=== PATIENT | male | born 1965 | race Caucasian/White ===

== ENCOUNTER 2017-07-11 21:00 | Emergency (ER) | payer BC ==
[2017-07-11 21:08] VITALS: BP 134/88; PULSE 88; TEMP 97.8; BMI 31.0
--- NOTE | 2017-07-11 21:13 | PDOC ---
History of Present Illness - History of Present Illness Initial Comments: 07/11/17 21:45 The patient is a 52 year old male, with a significant past medical history of diverticulitis (09/02), lumbar herniated discs, who presents to the emergency department with LLQ pain this afternoon. Patient describes his pain as cramping , intermittent, does not radiate, worsens when bending at the hip. Patient states that he experienced the same pain around 2-3 weeks ago and states the pain lasted a couple of days. He denies any recent fevers, chills, headache or dizziness. He denies any recent nausea, vomit, diarrhea or constipation. He denies any recent chest pain or shortness of breath. He denies any recent dysuria, frequency, urgency or hematuria. PAST MEDICAL HISTORY: no significant history PAST SURGICAL HISTORY: no significant history FAMILY HISTORY: no pertinent history SOCIAL HISTORY: pack > 30 years. Social EtOH use. Denies recreational drug use. MEDICATIONS: reviewed ALLERGIES: Zosyn, bee stings. Primary Care Physician: Daren Mondragon Review of Symptoms General: No fevers or chills, no weakness, no weight loss HEENT: No change in vision. No sore throat, No ear pain Cardiovascular: No chest pain or shortness of breath Respiratory:No cough, or wheezing. Gastrointestinal: +LLQ pain.No nausea, vomiting, diarrhea or constipation, No rectal bleeding Genitourinary: No dysuria, hematuria, or frequency Musculoskeletal: No joint or muscle pain or swelling Neurologic: No headache, vertigo, dizziness or loss of consciousness Psychiatric: No depression Skin: No rashes or easy bruising Endocrine: No increased thirst or abnormal weight change Allergic: No skin or latex allergy All other systems reviewed and normal Physical Exam General: Well-nourished well-developed individual, no acute distress HEENT: Throat: Normal, tonsils normal, no erythema or exudate Neck: Supple, no meningeal signs, no lymphadenopathy Eyes::Pupils equal reactive and round, extraocular motion intact Chest: Nontender to palpation Cardiac: S1-S2 normal, regular rate and rhythm, no murmurs rubs or gallops Respiratory: Lungs clear to auscultation bilateral Abdomen: Soft, nondistended, normal bowel sounds, LLQ tenderness to palpation, no guarding, no rebound. Extremities: Warm, dry, no cyanosis, clubbing, or edema Skin: No rashes Neuro: Alert and oriented x3, nonfocal exam, grossly intact, normal gait Psych: Normal mood and affect <Rosemary Mahajan - Last Filed: 07/11/17 21:49> - General History Source: Patient Exam Limitations: No Limitations - History of Present Illness Initial Comments: A portion of this note was documented by scribe services under my direction. I have reviewed the details of the note, within reason, and agree with the documentation. The case summary and management plan written by me. Medical decision making: This is a 52-year-old male who has history of diverticulitis in the past 2. Patient comes in now complaining of one day of left lower quadrant pain. Patient denies any fevers or chills. Patient denies any urinary complaints. There is tenderness on palpation in the right lower quadrant but no guarding or rebound. There is no evidence on my exam at this time of peritonitis. Will initiate a workup to rule out diverticulitis. CBC, comp, urinalysis sent to the lab Will obtain a CAT scan of the abdomen and pelvis Will reassess and review results of workup 07/11/17 22:47 Reassessment: Patient feels better post pain medication and some IV fluids. Patient finished drinking his oral contrast and that scan will be done at 11:30 PM. 07/12/17 00:36 Reassessment patient says that he is feeling much better at this point. Patient's CAT scan was read as acute diverticulitis There is also mention made of a possible mass so patient was given a copy of the CAT scan and told that he needs to have it followed up after resolution of the diverticulitis. Patient given ceftriaxone and Flagyl IV Assessment and plan: This is a 52-year-old male comes in complaining of fever and pain. Patient had a workup that was positive for acute diverticulitis. Patient started on IV antibiotics in the emergency room ceftriaxone and Flagyl and prescriptions for Bactrim and Flagyl were said to his pharmacy. Patient was given a copy of his CAT scan and told that he needs to followed up with his primary care Dr. as her was a questionable mass on I discussed the physical exam findings, ancillary test results and final diagnoses with the patient. I answered all of the patient's questions. The patient was satisfied with the care received and felt comfortable with the discharge plan and treatment plan. The patient will call his primary care physician within 24 hours to arrange follow-up and will return to the Emergency Department with any new, persistent or worsening symptoms. <Cesar Dhillon I - Last Filed: 07/12/17 00:49> - General Chief Complaint: Pain Stated Complaint: LEFT GROIN PAIN Time Seen by Provider: 07/11/17 21:06 Past History <Rosemary Mahajan - Last Filed: 07/11/17 21:49> - Past Medical History Anemia: No Asthma: No Cancer: No Cardiac Disorders: No CVA: No COPD: No CHF: No DVT: No Dementia: No Diabetes: No Dialysis: No GI Disorders: No Disorders: No HTN: No Hypercholesterolemia: No Kidney Stones: No Liver Disease: No Psychiatric Problems: No Seizures: No Thyroid Disease: No Lung CA: No - Suicide/Smoking/Psychosocial Hx Smoking Status: Yes Smoking History: Unknown if ever smoked Have you smoked in the past 12 months: Yes Number of Cigarettes Smoked Daily: 20 Cigars Per Day: 20 'Breaking Loose' booklet given: 09/09/13 Hx Alcohol Use: No Drug/Substance Use Hx: No Substance Use Type: None <Cesar Dhillon I - Last Filed: 07/12/17 00:49> - Past Medical History Allergies/Adverse Reactions: Allergies Allergy/AdvReac Type Severity Reaction Status Date / Time piperacillin sodium Allergy Rash Verified 07/11/17 21:12 [From Zosyn] tazobactam sodium Allergy Rash Verified 07/11/17 21:12 [From Zosyn] Bee stings Allergy Uncoded 09/09/13 11:31 Home Medications: Ambulatory Orders Metronidazole [Flagyl -] 500 mg PO BID #20 tablet 07/12/17 Sulfamethoxazole/Trimethoprim [Bactrim Ds -] 1 tab PO BID #20 tablet 07/12/17 Review of Systems - Review of Systems Comments:: 07/11/17 21:45 see HPI <Rosemary Mahajan - Last Filed: 07/11/17 21:49> *Physical Exam - Vital Signs Last Vital Signs Temp Pulse Resp BP Pulse Ox 97.8 F 88 16 134/88 98 07/11/17 21:00 07/11/17 21:00 07/11/17 21:00 07/11/17 21:00 07/11/17 21:00 - Physical Exam Comments: 07/11/17 21:45 see HPI <Rosemary Mahajan - Last Filed: 07/11/17 21:49> - Vital Signs Last Vital Signs Temp Pulse Resp BP Pulse Ox 97.8 F 88 16 134/88 98 07/11/17 21:00 07/11/17 21:00 07/11/17 21:00 07/11/17 21:00 07/11/17 21:00 <Cesar Dhillon I - Last Filed: 07/12/17 00:49> ED Treatment Course - LABORATORY CBC & Chemistry Diagram: 07/11/17 21:45 07/11/17 21:45 <Cesar Dhillon I - Last Filed: 07/12/17 00:49> *DC/Admit/Observation/Transfer <Rosemary Mahajan - Last Filed: 07/11/17 21:49> - Discharge Dispostion Admit: No <Cesar Dhillon I - Last Filed: 07/12/17 00:49> Diagnosis at time of Disposition: Diverticulitis - Discharge Dispostion Disposition: HOME Condition at time of disposition: Stable - Prescriptions Prescriptions: Metronidazole [Flagyl -] 500 mg PO BID #20 tablet Sulfamethoxazole/Trimethoprim [Bactrim Ds -] 1 tab PO BID #20 tablet - Referrals Referrals: Daren Mondragon MD [Primary Care Provider] - - Patient Instructions Printed Discharge Instructions: DI for Diverticulitis Additional Instructions: Take bactrim 1 tablet twice a day for the next 10 days. Take Flagyl 1 tablet twice a day for the next 10 days. A diverticulitis diet is recommend as part of a short-term treatment plan for acute diverticulitis. Diverticula are small, bulging pouches that can form in the lining of the digestive system. They're found most often in the lower part of the large intestine (colon). This condition is called diverticulosis. In some cases, one or more of the pouches become inflamed or infected. This is known as diverticulitis. Mild cases of diverticulitis are usually treated with antibiotics and a diverticulitis diet, which includes clear liquids and low-fiber foods. More- severe cases typically require hospitalization. A diverticulitis diet is a temporary measure to give your digestive system a chance to rest. Oral intake is usually reduced until bleeding and diarrhea subside. A diverticulitis diet starts with only clear liquids for a few days. Examples of items allowed on a clear liquid diet include: Broth Fruit juices without pulp, such as apple juice Ice chips Ice pops without bits of fruit or fruit pulp Gelatin Water Tea or coffee without cream As you start feeling better, your doctor will recommend that you slowly add low- fiber foods. Examples of low-fiber foods include: Canned or cooked fruits without skin or seeds Canned or cooked vegetables such as green beans, carrots and potatoes (without the skin) Eggs, fish and poultry Refined white bread Fruit and vegetable juice with no pulp Low-fiber cereals Milk, yogurt and cheese eat yogurt at least once a day as it will help replenish the healthy bacteria in your intestines that the antibiotics kill. White rice, pasta and noodles You should feel better within two or three days of starting the diet and antibiotics. If you haven't started feeling better by then, call your doctor. Also contact your doctor if: You develop a fever Your abdominal pain is worsening You're unable to keep clear liquids down These may indicate a complication that requires hospitalization. The diverticulitis diet has few risks. However, continuing a clear liquid diet for more than a few days can lead to weakness and other complications, since it doesn't provide enough of the nutrients your body needs. For this reason, I recommend you to transition to the low fiberl diet as soon as you can tolerate it and then back to a normal diet once you finish the antibiotics. I give you a copy of your CAT scan it is important you take it to your doctor and have it followed up as there was a questionable finding of a mass on the CAT scan that needs to be followed up by your primary care doctor. Return to the emergency department immediately with ANY new, persistent or worsening symptoms. Continue any medications as previously prescribed by your physician. You should follow up with your primary doctor as soon as possible regarding today's emergency department visit. . Please make sure your doctor reviews the results of your emergency evaluation. Thank you for coming to the Emergency Department today for your care. It was a pleasure to see you today. Please note that your evaluation is INCOMPLETE until you follow-up with your doctor. - Post Discharge Activity
[2017-07-11] MEDS ORDERED: morphine CARPU-JECT 4 MG/1 ML DISP.SYRIN IVPUSH ONE (21:47)
[2017-07-11] MEDS ORDERED: SODIUM CHLORIDE 1,000 ML IV ONE (21:47)
[2017-07-11] MEDS ORDERED: ONDANSETRON 4 MG/2 ML VIAL IVPB ONE (21:49)
[2017-07-11] MEDS ORDERED: morphine SULFATE 4 MG/ML VIAL ONE (21:52)
[2017-07-11] MEDS ORDERED: ONDANSETRON 4 MG/2 ML VIAL ONE (21:52)
[2017-07-11 22:00] LABS: URINE APPEARANCE Clear; URINE BILIRUBIN Negative (NEGATIVE); URINE BLOOD Negative (NEGATIVE); URINE GLUCOSE (UA) Negative (NEGATIVE); URINE KETONE Trace (NEGATIVE); URINE NITRITE Negative (NEGATIVE); URINE PROTEIN Trace (NEGATIVE); URINE UROBILINOGEN 0.2 (0.2-1.0)
[2017-07-11 22:03] LABS: URINE COLOR YELLOW
[2017-07-11 22:07] LABS: BASO % 0.6 % (0-2.0); EOS % 0.9 % (0-4.5); HEMATOCRIT 42.9 % (35.4-49); HEMOGLOBIN 14.5 GM/dl (11.7-16.9); LYMPH % 15.6 % (8-40); MCH 29.4 pg (25.7-33.7); MCHC 33.8 g/dl (32.0-35.9); MEAN CELL VOLUME 87.1 fl (80-96); MEAN PLT VOLUME 9.3 fl (7.5-11.1); MONO % 7.6 % (3.8-10.2); NEUT % 75.3 % (42.8-82.8); PLATELET COUNT 224 K/MM3 (134-434); RBC 4.93 M/mm3 (4.00-5.60); RDW 13.1 % (11.9-15.9); WHITE BLOOD COUNT 15.1 K/mm3 (4.0-10.8)
[2017-07-11 22:15] LABS: ALBUMIN 4.2 g/dl (3.5-5.0); ALK PHOS 65 U/L (32-92); ANION GAP 8 (8-16); BILIRUBIN,TOTAL 1.1 mg/dl (0.2-1.0); BLOOD UREA NITROGEN 20 mg/dl (7-18); CALCIUM 9.4 mg/dl (8.4-10.2); CHLORIDE 102 mmol/L (98-107); CO2 26 mmol/L (22-28); CREATININE 1.1 mg/dl (0.6-1.3); GLUCOSE,RANDOM 89 mg/dl (74-106); LIPASE 21 U/L (22-51); POTASSIUM 4.2 mmol/L (3.5-5.1); SGOT/AST 22 U/L (10-42); SGPT/ALT 22 U/L (10-40); SODIUM 136 mmol/L (136-145); TOT PROT 6.9 g/dl (6.4-8.3)
[2017-07-12] MEDS ORDERED: CEFTRIAXONE 1,000 MG in DEXTROSE 5%-WATER - 50 ML IVPB ONE (00:37)
[2017-07-12] MEDS ORDERED: metroNIDAZOLE 500 MG TABLET PO ONE (00:38)
[2017-07-12] MEDS ORDERED: cefTRIAXone SODIUM 1 GM VIAL ONE (00:43)
--- NOTE | 2017-07-12 01:17 | PDOC ---
History of Present Illness - General Chief Complaint: Pain Stated Complaint: LEFT GROIN PAIN Time Seen by Provider: 07/11/17 21:06 Past History - Past Medical History Allergies/Adverse Reactions: Allergies Allergy/AdvReac Type Severity Reaction Status Date / Time piperacillin sodium Allergy Rash Verified 07/11/17 21:12 [From Zosyn] tazobactam sodium Allergy Rash Verified 07/11/17 21:12 [From Zosyn] Bee stings Allergy Uncoded 09/09/13 11:31 Home Medications: Ambulatory Orders Metronidazole [Flagyl -] 500 mg PO BID #20 tablet 07/12/17 Sulfamethoxazole/Trimethoprim [Bactrim Ds -] 1 tab PO BID #20 tablet 07/12/17 Anemia: No Asthma: No Cancer: No Cardiac Disorders: No CVA: No COPD: No CHF: No DVT: No Dementia: No Diabetes: No Dialysis: No GI Disorders: No Disorders: No HTN: No Hypercholesterolemia: No Kidney Stones: No Liver Disease: No Psychiatric Problems: No Seizures: No Thyroid Disease: No Lung CA: No - Suicide/Smoking/Psychosocial Hx Smoking Status: Yes Smoking History: Unknown if ever smoked Have you smoked in the past 12 months: Yes Number of Cigarettes Smoked Daily: 20 Cigars Per Day: 20 'Breaking Loose' booklet given: 09/09/13 Hx Alcohol Use: No Drug/Substance Use Hx: No Substance Use Type: None *Physical Exam - Vital Signs Last Vital Signs Temp Pulse Resp BP Pulse Ox 97.8 F 88 16 134/88 98 07/11/17 21:00 07/11/17 21:00 07/11/17 21:00 07/11/17 21:00 07/11/17 21:00 ED Treatment Course - LABORATORY CBC & Chemistry Diagram: 07/11/17 21:45 07/11/17 21:45 - ADDITIONAL ORDERS Additional order review: Laboratory Results 07/11/17 07/11/17 21:45 21:45 Sodium 136 Potassium 4.2 Chloride 102 Carbon Dioxide 26 Anion Gap 8 BUN 20 H Creatinine 1.1 D Creat Clearance w eGFR > 60 Random Glucose 89 Calcium 9.4 Total Bilirubin 1.1 H D AST 22 D ALT 22 Alkaline Phosphatase 65 Total Protein 6.9 Albumin 4.2 Lipase 21 L Urine Color Yellow Urine Appearance Clear Urine pH 6.0 Ur Specific [place] 1.025 Urine Protein Trace Urine Glucose (UA) Negative Urine Ketones Trace Urine Blood Negative Urine Nitrite Negative Urine Bilirubin Negative Urine Urobilinogen 0.2 07/11/17 21:45 RBC 4.93 MCV 87.1 MCHC 33.8 RDW 13.1 MPV 9.3 Neutrophils % 75.3 Lymphocytes % 15.6 D Monocytes % 7.6 Eosinophils % 0.9 Basophils % 0.6 - RADIOLOGY Radiology Studies Ordered: Category Date Time Status ABDOMEN & PELVIS CT WITH CONTR [CT] Stat CT Scan 07/11/17 21:50 Taken - Medications Given in the ED: ED Medications Discontinued Medications Generic Name Dose Route Start Last Admin Trade Name Freq PRN Reason Stop Dose Admin Sodium Chloride 1,000 mls @ 1,000 mls/hr 07/11/17 21:47 07/11/17 21:58 Normal Saline - IV 07/11/17 22:46 1,000 mls/hr .Q1H ONE Administration Metronidazole 500 mg 07/12/17 00:38 07/12/17 00:51 Flagyl - PO 07/12/17 00:39 Not Given ONCE ONE Morphine Sulfate 4 mg 07/11/17 21:47 07/11/17 21:58 Morphine Injection - IVPUSH 07/11/17 21:48 4 mg ONCE ONE Administration Ondansetron HCl 4 mg 07/11/17 21:49 07/11/17 21:58 Zofran Injection IVPB 07/11/17 21:50 4 mg ONCE ONE Administration *DC/Admit/Observation/Transfer Diagnosis at time of Disposition: Diverticulitis - Discharge Dispostion Disposition: HOME Condition at time of disposition: Stable - Prescriptions Prescriptions: Metronidazole [Flagyl -] 500 mg PO BID #20 tablet Sulfamethoxazole/Trimethoprim [Bactrim Ds -] 1 tab PO BID #20 tablet - Referrals Referrals: Daren Mondragon MD [Primary Care Provider] - - Patient Instructions Printed Discharge Instructions: DI for Diverticulitis Additional Instructions: Take bactrim 1 tablet twice a day for the next 10 days. Take Flagyl 1 tablet twice a day for the next 10 days. A diverticulitis diet is recommend as part of a short-term treatment plan for acute diverticulitis. Diverticula are small, bulging pouches that can form in the lining of the digestive system. They're found most often in the lower part of the large intestine (colon). This condition is called diverticulosis. In some cases, one or more of the pouches become inflamed or infected. This is known as diverticulitis. Mild cases of diverticulitis are usually treated with antibiotics and a diverticulitis diet, which includes clear liquids and low-fiber foods. More- severe cases typically require hospitalization. A diverticulitis diet is a temporary measure to give your digestive system a chance to rest. Oral intake is usually reduced until bleeding and diarrhea subside. A diverticulitis diet starts with only clear liquids for a few days. Examples of items allowed on a clear liquid diet include: Broth Fruit juices without pulp, such as apple juice Ice chips Ice pops without bits of fruit or fruit pulp Gelatin Water Tea or coffee without cream As you start feeling better, your doctor will recommend that you slowly add low- fiber foods. Examples of low-fiber foods include: Canned or cooked fruits without skin or seeds Canned or cooked vegetables such as green beans, carrots and potatoes (without the skin) Eggs, fish and poultry Refined white bread Fruit and vegetable juice with no pulp Low-fiber cereals Milk, yogurt and cheese eat yogurt at least once a day as it will help replenish the healthy bacteria in your intestines that the antibiotics kill. White rice, pasta and noodles You should feel better within two or three days of starting the diet and antibiotics. If you haven't started feeling better by then, call your doctor. Also contact your doctor if: You develop a fever Your abdominal pain is worsening You're unable to keep clear liquids down These may indicate a complication that requires hospitalization. The diverticulitis diet has few risks. However, continuing a clear liquid diet for more than a few days can lead to weakness and other complications, since it doesn't provide enough of the nutrients your body needs. For this reason, I recommend you to transition to the low fiberl diet as soon as you can tolerate it and then back to a normal diet once you finish the antibiotics. I give you a copy of your CAT scan it is important you take it to your doctor and have it followed up as there was a questionable finding of a mass on the CAT scan that needs to be followed up by your primary care doctor. Return to the emergency department immediately with ANY new, persistent or worsening symptoms. Continue any medications as previously prescribed by your physician. You should follow up with your primary doctor as soon as possible regarding today's emergency department visit. . Please make sure your doctor reviews the results of your emergency evaluation. Thank you for coming to the Emergency Department today for your care. It was a pleasure to see you today. Please note that your evaluation is INCOMPLETE until you follow-up with your doctor. - Post Discharge Activity Forms/Work/School Notes: Back to Work
== END 2017-07-12 02:28 | disposition home or self-care (01) ==
LOC: FER 21:00
PROC: 3E0337Z Introduction of Electrolytic and Water Balance Substance into Peripheral Vein, Percutaneous Approach (ICD-10-PCS; principal; 2017-07-11)
PROC: 3E03329 Introduction of Other Anti-infective into Peripheral Vein, Percutaneous Approach (ICD-10-PCS; 2017-07-11)
PROC: 3E033NZ Introduction of Analgesics, Hypnotics, Sedatives into Peripheral Vein, Percutaneous Approach (ICD-10-PCS; 2017-07-11)
PROC: 3E033GC Introduction of Other Therapeutic Substance into Peripheral Vein, Percutaneous Approach (ICD-10-PCS; 2017-07-11)
DX: K57.92 Diverticulitis of intestine, part unspecified, without perforation or abscess without bleeding (principal); F17.210 Nicotine dependence, cigarettes, uncomplicated
CPT/HCPCS: 36415; 74177-TC; 80053; 81003; 83690; 85025; 96365; 96368; 96375; 99283-25; J7030

== ENCOUNTER 2017-08-15 07:22 | Emergency (ER) | payer BC ==
--- NOTE | 2017-08-15 07:28 | PDOC ---
History of Present Illness - General Chief Complaint: Pain, Acute Stated Complaint: LEFT LOWER ABD PAIN Time Seen by Provider: 08/15/17 07:27 History Source: Patient Exam Limitations: No Limitations - History of Present Illness Initial Comments: 08/15/17 07:31 Mr Barbour is a 52 year old male with a significant past medical history of diverticulitis (09/02), lumbar herniated discs, recent treatment for diverticulitis, reent diagnosis of BPH who presents to the emergency department with LLQ. Pt states that his symptoms began at approximately 8pm last night Sudden onset last night, pain has been constant but intermittently waxing and waning, pain is described as cramping No associated fevers or chills No nausea or vomiting Pt took miralax last night after pain began He denies any recent fevers, chills, headache or dizziness. He denies any recent nausea, vomit, diarrhea or constipation. He denies any recent chest pain or shortness of breath. He denies any recent dysuria, frequency, urgency or hematuria. PAST MEDICAL HISTORY: Diverticulitis, BPH PAST SURGICAL HISTORY: no significant history FAMILY HISTORY: no pertinent history SOCIAL HISTORY: 1 pack/day > 30 years. Social EtOH use. Denies recreational drug use. MEDICATIONS: Vitamin B, Flomax ALLERGIES: Pt denies but per chart, Zosyn, bee stings. Primary Care Physician: Dr. Mondragon Review of Symptoms General: No fevers or chills, no weakness, no weight loss HEENT: No change in vision. No sore throat, No ear pain Cardiovascular: No chest pain or shortness of breath Respiratory:No cough, or wheezing. Gastrointestinal: +LLQ pain.No nausea, vomiting, diarrhea or constipation, No rectal bleeding Genitourinary: No dysuria, hematuria, or frequency Musculoskeletal: No joint or muscle pain or swelling Neurologic: No headache, vertigo, dizziness or loss of consciousness Psychiatric: No depression Skin: No rashes or easy bruising Endocrine: No increased thirst or abnormal weight change Allergic: No skin or latex allergy All other systems reviewed and normal Physical Exam General: Well-nourished well-developed individual, no acute distress HEENT: Throat: Normal, tonsils normal, no erythema or exudate Neck: Supple, no meningeal signs, no lymphadenopathy Eyes::Pupils equal reactive and round, extraocular motion intact Chest: Nontender to palpation Cardiac: S1-S2 normal, regular rate and rhythm, no murmurs rubs or gallops Respiratory: Lungs clear to auscultation bilateral Abdomen: Soft, nondistended, normal bowel sounds, exquisite LLQ tenderness to palpation,no involuntary guarding, no rebound. Extremities: Warm, dry, no cyanosis, clubbing, or edema Skin: No rashes Neuro: Alert and oriented x3, nonfocal exam, grossly intact, normal gait Psych: Normal mood and affect 08/15/17 07:32 Past History - Past Medical History Allergies/Adverse Reactions: Allergies Allergy/AdvReac Type Severity Reaction Status Date / Time piperacillin sodium Allergy Rash Verified 08/15/17 10:08 [From Zosyn] tazobactam sodium Allergy Rash Verified 08/15/17 10:08 [From Zosyn] Bee stings Allergy Uncoded 08/15/17 10:08 Home Medications: Ambulatory Orders Bifidobacterium Infantis [Align] 10.5 mg PO DAILY #30 tab.chew 08/15/17 Levofloxacin [Levaquin] 750 mg PO DAILY #10 tablet 08/15/17 metroNIDAZOLE [Flagyl -] 500 mg PO TID #30 tablet 08/15/17 Anemia: No Asthma: No Cancer: No Cardiac Disorders: No CVA: No COPD: No CHF: No DVT: No Dementia: No Diabetes: No Dialysis: No GI Disorders: No Disorders: No HTN: No Hypercholesterolemia: No Kidney Stones: No Liver Disease: No Psychiatric Problems: No Seizures: No Thyroid Disease: No Lung CA: No - Suicide/Smoking/Psychosocial Hx Smoking Status: Yes Smoking History: Current every day smoker Have you smoked in the past 12 months: Yes Number of Cigarettes Smoked Daily: 30 Cigars Per Day: 20 Information on smoking cessation initiated: Yes 'Breaking Loose' booklet given: 08/15/17 Hx Alcohol Use: No Drug/Substance Use Hx: No Substance Use Type: None *Physical Exam - Vital Signs Last Vital Signs Temp Pulse Resp BP Pulse Ox 98.7 F 96 H 18 135/95 100 08/15/17 07:23 08/15/17 07:23 08/15/17 07:23 08/15/17 07:23 08/15/17 07:23 ED Treatment Course - LABORATORY CBC & Chemistry Diagram: 08/15/17 07:33 08/15/17 07:33 Medical Decision Making - Medical Decision Making 08/15/17 07:31 This is a 52-year-old male who has history of diverticulitis in the past 3. He presents to the ER with LLQ pain that began last night DD includes: Diverticulitis (complicated vs uncomplicated), kidney stone, 08/15/17 08:44 Laboratory Tests 08/15/17 07:30 Urine Ketones Negative Urine Blood Trace-lysed H Urine Nitrite Negative Urine Bilirubin Negative Urine Urobilinogen 0.2 Ur Leukocyte Esterase Negative Urine RBC Pending Laboratory Tests 08/15/17 08/15/17 07:33 07:33 WBC 15.9 H Hgb 15.3 Hct 43.6 Plt Count 239 Neutrophils % 76.6 Lymphocytes % 12.0 D Sodium 135 L Potassium 4.5 Chloride 105 Carbon Dioxide 24 Anion Gap 6 L BUN 19 H Creatinine 0.8 D Random Glucose 102 08/15/17 10:43 The abdomen and pelvis: Concentric wall edema is again visualized, no extra luminal air seen, as on the prior study, several small low attenuation foci are noted within the thickened sigmoid colon wall possibly representing intramural abscesses. No colonic abscess is identified. Region of sigmoid involvement is similar to a remote CT scan. This is consistent with persistent versus recurrent sigmoid diverticulitis I had a long conversation with this patient regarding my concern that he has evidence of intracranial abscesses, he recently was treated for acute diverticulitis and within 1 minute and occurred. 10:46 AM Case reviewed with patient's primary care physician 08/15/17 10:45 Dr Mondragon agrees that this patient should stay He is refusing to stay in the hospital I have explained that he will be leaving against medical advice I have asked him to re consider Pt states he does not want to be stuck in the hospital I have explained that we can place him on observation Pt refusing to stay Note: The patient insists on leaving the emergency dept and is signing out against medical advice. The patient understands the risks and complications that may result from the refusal of medical care and admission which includes and permanent disability. The patient has the mental capacity of understanding the risks of refusing care and is capable of making an informed decision. The patient was instructed to return to the emergency department should he change his mind regarding medical care or should his condition worsen. The patient signed the Against Medical Advice form. Clinical Impression: diverticulitis, repeat presentation *DC/Admit/Observation/Transfer Diagnosis at time of Disposition: Diverticulitis - Discharge Dispostion Disposition: AGAINST MEDICAL ADVICE Condition at time of disposition: Good Admit: No - Prescriptions Prescriptions: Bifidobacterium Infantis [Align] 10.5 mg PO DAILY #30 tab.chew Levofloxacin [Levaquin] 750 mg PO DAILY #10 tablet metroNIDAZOLE [Flagyl -] 500 mg PO TID #30 tablet - Referrals Referrals: Clive Barry MD [Staff Physician] - Tommy Moreau MD [Staff Physician] - Daren Mondragon MD [Staff Physician] - - Patient Instructions Printed Discharge Instructions: DI for Diverticulitis Additional Instructions: Mr Perez Thank you for coming into the emergency department today. Please be sure to follow up with Dr. Mondragon the office within one to 2 weeks. You must monitor yourself for fevers or chills. If you noticed increased abdominal pain, fevers, you must return immediately to the emergency department. If you noticed nausea, vomiting, inability to take her antibiotics, you must return to the emergency department. Please take antibiotics and probiotics as prescribed Please be sure to follow up with Dr Barry in 2 weeks - Post Discharge Activity Forms/Work/School Notes: Back to Work
[2017-08-15] MEDS ORDERED: SODIUM CHLORIDE 1,000 ML IV STA (07:29)
[2017-08-15] MEDS ORDERED: morphine CARPU-JECT 4 MG/1 ML DISP.SYRIN IVPUSH ONE (07:29)
[2017-08-15 07:30] VITALS: BP 135/95; PULSE 96; TEMP 98.7; BMI 30.5
[2017-08-15] MEDS ORDERED: morphine SULFATE 4 MG/ML VIAL ONE (07:39)
[2017-08-15 08:21] LABS: URINE APPEARANCE Clear; URINE BILIRUBIN Negative (NEGATIVE); URINE GLUCOSE (UA) Negative (NEGATIVE); URINE KETONE Negative (NEGATIVE); URINE LEUK ESTERASE Negative (NEGATIVE); URINE NITRITE Negative (NEGATIVE); URINE PROTEIN Negative (NEGATIVE); URINE UROBILINOGEN 0.2 (0.2-1.0)
[2017-08-15 08:25] LABS: EOS % 0.8 % (0-4.5); HEMATOCRIT 43.6 % (35.4-49); HEMOGLOBIN 15.3 GM/dl (11.7-16.9); MCH 30.6 pg (25.7-33.7); MCHC 35.1 g/dl (32.0-35.9); MEAN CELL VOLUME 87.1 fl (80-96); MEAN PLT VOLUME 8.7 fl (7.5-11.1); MONO % 10.6 % (3.8-10.2); NEUT % 76.6 % (42.8-82.8); PLATELET COUNT 239 K/MM3 (134-434); RBC 5.01 M/mm3 (4.00-5.60); RDW 13.8 % (11.9-15.9); WHITE BLOOD COUNT 15.9 K/mm3 (4.0-10.8)
[2017-08-15 08:27] LABS: URINE COLOR YELLOW
[2017-08-15 08:44] LABS: ALBUMIN 4.2 g/dl (3.5-5.0); ALK PHOS 62 U/L (32-92); ANION GAP 6 (8-16); BILIRUBIN,TOTAL 0.9 mg/dl (0.2-1.0); BLOOD UREA NITROGEN 19 mg/dl (7-18); CALCIUM 9.5 mg/dl (8.4-10.2); CHLORIDE 105 mmol/L (98-107); CO2 24 mmol/L (22-28); CREATININE 0.8 mg/dl (0.6-1.3); GLUCOSE,RANDOM 102 mg/dl (74-106); POTASSIUM 4.5 mmol/L (3.5-5.1); SGOT/AST 17 U/L (10-42); SGPT/ALT 25 U/L (10-40); SODIUM 135 mmol/L (136-145); TOT PROT 7.3 g/dl (6.4-8.3)
[2017-08-15 10:18] LABS: URINE BACTERIA NONE SEEN /hpf (NEGATIVE); URINE RBC 0-1 /hpf (0-3); URINE WBC 0-2 (0-2)
== END 2017-08-15 11:09 | disposition left against medical advice (07) ==
LOC: FER 07:22
PROC: 3E033NZ Introduction of Analgesics, Hypnotics, Sedatives into Peripheral Vein, Percutaneous Approach (ICD-10-PCS; principal; 2017-08-15)
PROC: 3E0337Z Introduction of Electrolytic and Water Balance Substance into Peripheral Vein, Percutaneous Approach (ICD-10-PCS; 2017-08-15)
DX: K57.92 Diverticulitis of intestine, part unspecified, without perforation or abscess without bleeding (principal)
CPT/HCPCS: 36415; 74177-TC; 80053; 81003; 81015; 85025; 87086; 99283-25; J7030

== ENCOUNTER 2017-11-07 07:42 | Inpatient (IN) | payer BC ==
[2017-11-07] MEDS ORDERED: PEG3350/SOD SULF,BICARB,CL/KCL 4,000 ML SOLN.RECON PO STA (10:09)
[2017-11-07] MEDS: D5-1/2NS+10 MEQ KCL - 10 MEQ/1,000 ML INFUS.BAG IV SCH (11:09)
[2017-11-07 11:18] LABS: BASO % 0.3 % (0-2.0); EOS % 1.3 % (0-4.5); HEMATOCRIT 40.6 % (35.4-49); HEMOGLOBIN 13.7 GM/dL (11.7-16.9); LYMPH % 20.4 % (8-40); MCH 29.8 pg (25.7-33.7); MCHC 33.7 g/dl (32.0-35.9); MEAN CELL VOLUME 88.5 fl (80-96); MEAN PLT VOLUME 8.7 fl (7.5-11.1); MONO % 7.4 % (3.8-10.2); NEUT % 70.6 % (42.8-82.8); PLATELET COUNT 214 K/MM3 (134-434); RBC 4.59 M/mm3 (4.00-5.60); WHITE BLOOD COUNT 8.4 K/mm3 (4.0-10.0)
[2017-11-07 11:38] LABS: ANION GAP 6 (8-16); BLOOD UREA NITROGEN 17 mg/dL (7-18); CALCIUM 8.9 mg/dL (8.5-10.1); CHLORIDE 109 mmol/L (98-107); CO2 26 mmol/L (21-32); CREATININE 0.8 mg/dL (0.7-1.3); GLUCOSE,RANDOM 123 mg/dL (74-106); POTASSIUM 4.2 mmol/L (3.5-5.1); SODIUM 141 mmol/L (136-145)
--- NOTE | 2017-11-07 13:47 | HP ---
DATE OF ADMISSION: DATE OF SURGERY: BRIEF HISTORY: This is a 52-year-old gentleman who has had 4 bouts of diverticulitis in the past 3-4 years. Each bout has been managed medically with antibiotics, and the patient was hospitalized even with his first bout. The patient's first bout had microperforation as well as his subsequent bouts. His most recent attack was in June 2017. At that time, he had a microperforation of his diverticulitis. The area involved was the proximal sigmoid colon/junction of the descending colon. The patient was managed medically and subsequently discharged to home. He had a follow up CAT scan in July, approximately 1 month later, and the repeat CT in July still noted persistent acute sigmoid diverticulitis. It was also in the same area. It was noted to be in the upper 1/3 of the sigmoid colon. This repeat CAT scan demonstrated no areas of extraluminal area. He is still noted to have marked thickened colon that could be representing an intramural abscess, but there is no free pericolonic abscess identified. The patient has had a colonoscopy in [address] Barry, and according to the patient, there were no suspicious findings on his colonoscopy. He is now here today for definitive management of his recurrent, complicated diverticulitis. PAST MEDICAL HISTORY: No coronary artery disease, hypertension, or diabetes. PAST SURGICAL HISTORY: None. MEDICATIONS: None. ALLERGIES: None. SOCIAL HISTORY: The patient smokes 2 packs of cigarettes per day and does not drink. PHYSICAL EXAMINATION: Abdomen soft, nontender, and nondistended. No peritoneal findings. IMPRESSION AND PLAN: Recurrent, complicated diverticulitis. This is a 52-year- old gentleman with multiple bouts of complicated diverticulitis (microperforation). Each time the area in question has always been in the proximal 1/3 of the sigmoid/descending colon junction. The most recent event was in June 2017, and the follow up CAT scan a month later demonstrated the findings of diverticulitis were still present. However, the microperforation and air were resorbed. The patient clinically has no evidence of abdominal pain or peritoneal findings at this time. The patient has had a recent colonoscopy within the year. At this point, I would recommend proceeding with attempt at a laparoscopic colon resection; however, given the most recent CT findings, I think it best to continue management medically and repeat his CAT scan at some point in several weeks. If the changes have improved then I would like to proceed with a laparoscopic low anterior resection. If the changes are still present, the patient will be given options to proceed with higher risks of postanastomotic leak or complications and wound infections. These decisions will be left up to the patient. These decisions will be left up to the patient. Further recommendations will be made pending the CAT scan. The indications, alternatives, and complications of the procedure are discussed at length. Questions have been answered. We will plan to obtain written consent the day of surgery. Shanice HEATON [id number] cc: MD Clive Zamarripa MD MTDD
--- NOTE | 2017-11-07 16:13 | EKG ---
Test Reason : Blood Pressure : / mmHG Vent. Rate : 061 BPM Atrial Rate : 061 BPM P-R Int : 172 ms QRS Dur : 084 ms QT Int : 414 ms P-R-T Axes : 051 -22 021 degrees QTc Int : 416 ms NORMAL SINUS RHYTHM WITH SINUS ARRHYTHMIA INFERIOR INFARCT (CITED ON OR BEFORE 12-JAN-2005) ABNORMAL ECG WHEN COMPARED WITH ECG OF 12-JAN-2005 18:31, NO SIGNIFICANT CHANGE WAS FOUND Confirmed by MD Danielito, John ([id number]) on 11/07/2017 4:12:41 PM Referred By: Tommy Moreau Confirmed By:John Esteves MD
[2017-11-07] MEDS ORDERED: PT OWN MED DRAWER 7, Y5N ONE (18:21)
[2017-11-08] MEDS: D5-1/2NS+10 MEQ KCL - 10 MEQ/1,000 ML INFUS.BAG IV SCH ×3 (00:56→17:56)
[2017-11-08] MEDS ORDERED: ERTAPENEM SODIUM 1 GM/50 ML PRE-DOCKED IVPB ONE (06:00)
[2017-11-08] MEDS ORDERED: PT OWN MED DRAWER 7, Y5N ONE (08:41)
[2017-11-08] MEDS ORDERED: fentaNYL CITRATE 250 MCG/5 ML VIAL ONE ×2 (09:04→10:05)
[2017-11-08] MEDS ORDERED: PROPOFOL 20 ML ONE (09:05)
[2017-11-08] MEDS ORDERED: ROCURONIUM BROMIDE 50 MG/5 ML VIAL ONE ×2 (09:05→10:01)
[2017-11-08] MEDS ORDERED: MIDAZOLAM HCL 2 MG/2 ML SINGLE DOSE VIAL ONE ×3 (09:05)
[2017-11-08] MEDS ORDERED: LIDOCAINE HCL/PF 2% SDV 5ML VIAL ONE (09:32)
[2017-11-08] MEDS ORDERED: ALBUTEROL SO4 18 GM HFA INHALER IH ONE (09:32)
[2017-11-08] MEDS ORDERED: ERTAPENEM SODIUM 1 GM VIAL ONE (09:40)
[2017-11-08] MEDS ORDERED: ERTAPENEM SODIUM 1 GM VIAL IVPB ONE (09:43)
[2017-11-08] MEDS ORDERED: DEXAMETHASONE SOD PHOSPHATE 4 MG/1 ML VIAL ONE (10:03)
[2017-11-08] MEDS ORDERED: ONDANSETRON 4 MG/2 ML VIAL ONE ×3 (10:03→11:39)
[2017-11-08] MEDS ORDERED: GlUCAGON HUMAN RECOMBINANT 1 MG/VIAL ONE (10:55)
[2017-11-08] MEDS ORDERED: ONDANSETRON 4 MG/2 ML VIAL IVPUSH PRN ×2 (11:10→11:49)
[2017-11-08] MEDS ORDERED: LACTATED RINGERS SOLUTION 1,000 ML IV SCH (11:15)
[2017-11-08] MEDS ORDERED: HYDROmorphone *PCA* 10MG/50ML DISP.SYRIN PCA SCH (11:15)
[2017-11-08] MEDS ORDERED: GLYCOPYRROLATE 0.2 MG/1 ML VIAL ONE ×2 (11:38→11:39)
[2017-11-08] MEDS ORDERED: NEOSTIGMINE METHYLSULFATE 0.5 MG/ML - 10 ML MDV ONE (11:38)
--- NOTE | 2017-11-08 11:48 | OP ---
Operative Note - Note: Operative Date: 11/08/17 Pre-Operative Diagnosis: complicated diverticulitis Operation: laparoscopic low anterior resection Findings: thickened proximal sigmoid colon with diverticula Post-Operative Diagnosis: Same as Pre-op Surgeon: Tommy Moreau Calendering Machine Operator: Johnny Mack Anesthesiologist/INJECTION MOLD TECHNICIAN: Michael Donaldson Anesthesia: General Specimens Removed: sigmoid colon with portion of rectum Estimated Blood Loss (mls): 30 Drains & Tubes with Location: eloisa pelvis
[2017-11-08] MEDS ORDERED: ACETAMINOPHEN 325 MG TABLET (FP) PO PRN (11:49)
[2017-11-08] MEDS ORDERED: morphine CARPU-JECT 10 MG/1 ML DISP.SYRIN IVPB PRN (11:49)
[2017-11-08] MEDS ORDERED: oxyCODONE HCL 5 MG TABLET PO PRN (11:49)
[2017-11-08] MEDS ORDERED: HYDROmorphone *PCA* 10MG/50ML DISP.SYRIN PCA ONE (12:23)
[2017-11-08] MEDS ORDERED: PROMETHAZINE HCL 25 MG/1 ML VIAL IVPUSH ONE ×2 (14:00→23:15)
[2017-11-08] MEDS ORDERED: PROMETHAZINE HCL 25 MG/1 ML VIAL ONE (14:01)
[2017-11-09] MEDS: morphine SULFATE 4 MG/ML VIAL IVPB PRN ×2 (03:33→11:04)
--- NOTE | 2017-11-09 06:40 | OP ---
DATE OF OPERATION: 11/08/2017 PREOPERATIVE DIAGNOSIS: Recurrent diverticulitis, history of perforation x2. POSTOPERATIVE DIAGNOSIS: Recurrent diverticulitis, history of perforation x2. PROCEDURE: Laparoscopic low anterior resection, splenic flexure takedown, anal dilatation, rigid sigmoidoscopy. SURGEON: Tommy Moreau M.D. ADZING AND BORING MACHINE HELPER: Johnny Mack D.O. ANESTHESIOLOGIST: Michael Donaldson M.D. (general) ESTIMATED BLOOD LOSS: Minimal. SPECIMEN: Portion of rectosigmoid. INDICATION FOR PROCEDURE: This is a 52-year-old gentleman with 2 bouts of perforated diverticulitis. Patient is here today for definitive management. He had undergone a colonoscopy approximately a year prior to this procedure. Patient identified and appropriately positioned on operating room table, placed under general anesthesia. Patient subsequently then placed in a low lithotomy position. The abdomen prepped with ChloraPrep and the perineum prepped with Betadine. Drapes were then placed in the standard fashion. A supraumbilical incision is made deep in the subcutaneous tissue. The fascia was divided sharply. The peritoneum incised under direct vision, and a Veress needle followed by a structural needle placed. Also under direct vision, an 11-mm port placed. The remaining ports placed under direct vision as well. Three 5-mm and one 12-mm port. Upon placement of the camera, the patient is noted to have the diseased segment adhered to the left pelvic sidewall as well as left pelvic anterior abdominal wall. The patient placed in a steep Trendelenburg. The peritoneal reflection on the right side at the level of the rectum was incised superiorly and inferiorly, and the sacral brim identified as well as the presacral space. The presacral space was subsequently bluntly developed for approximately an inch, inch and a half from the rim, and this was brought up superiorly toward the sigmoidal vessels. The sigmoidal vessels were then circumferentially isolated, serially divided with the LigaSure device. Four welds placed prior to complete division. Once the sigmoidal vessels were taken , the left retroperitoneum was then entered. The gonadal vessels identified more superiorly and deep to the gonadals meeting toward posterior and medial, the left ureter identified. The course of the left ureter was traced proximally above the sacral brim down into the left pelvis, beyond the sacral brim. At this point, the left colon was then rolled medially. Left peritoneal reflection identified in a similar fashion and then subsequently divided. The left presacral space was then bluntly developed again for another several inches beyond the level of the sacral brim. The left colon that was adherent to the anterior abdominal wall at this point was now subsequently taken down and rolled medially. The left colon itself was then taken off the white line and held up to the level of the splenic flexure. The proximal line of resection was chosen to be in the proximal rectum. The superior rectal vessel on the patient's left and right side was subsequently divided with LigaSure device. Four welds placed prior to complete division. The colon now rolled and brought into the pelvis, and it was obvious that after resection of the diseased segment, the patient would not have adequate length, and therefore splenic flexure was taken down to allow adequate mobilization of the remaining left colon for an anastomosis into the pelvis without tension. The left colon was then completely removed from the white line of Toldt at the level of the splenic flexure. The splenocolic ligament was taken with the LigaSure device. Four welds placed prior to complete division. Next the gastrocolic ligament was taken down in a similar fashion, and the renal colic was taken down with just blunt dissection. The loose peritoneal attachments in the retroperitoneum were bluntly dissected as well. This allowed mobilization of the distal transverse colon into the midabdomen as well as bringing the left colon itself into the pelvis. The CAMACHO pedicle did not need to be resected at this point for adequate mobilization and length. Once it was deemed that there was adequate length to be brought into the pelvis, attention was then subsequently focused around the proximal rectum at the site of the distal resection. The fat around the rectum at the level of the distal resection was then removed using LigaSure device. A single fired gold load Ethicon Endo JAROD stapler was used. Once the colon was divided, the rectal stump examined, and the staple length grossly is intact and the stump itself had good vascular supply without evidence of ischemia. The suprapubic 5-mm port removed. The skin was then subsequently opened with the cautery, and the fascia was divided transversely in a simple Pfannenstiel technique. The previous port site identified, peritoneum entered and lengthened as needed. A wound protector was subsequently placed. The operative field now draped off with green towels. The proximally divided colon brought out through this suprapubic opening and the proximal line of resection was chosen several inches above the obviously diseased segment of the sigmoid colon (patient's diseased segment was in the proximal sigmoid colon). In any event, a colotomy was subsequently made and 28 EEA anvil was then placed into the colon and milked proximally. The proximal line of resection was divided with a GIA80 3.8-mm stapler, and the spike was placed and brought out through the midaspect of the staple line. The anvil itself was sewn to the colon with a 3-0 pursestring Prolene suture. The spike removed, the colon with anvil was returned to the abdominal cavity. The peritoneum closed with a running 3-0 chromic suture. The fascia of the rectus was then reapproximated with a running number 1 PDS suture; the subcutaneous space irrigated. Surgeon and first dyer now changed gloves, suction, Bovie tip and so forth. At this point the first dyer went below and performed anal dilatation until approximately 3 to 4 fingerbreadths, and the colon was serially dilated using small, medium, and large dilators followed by the stapler that was placed. Prior to doing the dilatation and running of the staplers, the patient was given 1 mg of glucagon IV. The EEA was brought up to the rectal stump staple line and was subsequently spiked in the midaspect of the staple line, the 2 ends mated, and the stapler closed. The stapler had good firing and crunching sound. Next the stapler was subsequently removed. The first dyer reported good donuts on both sides. Grossly the EEA staple line is intact. The bowel proximal and distal to the staple line was pink and viable without evidence of ischemia. The staple line itself was then submerged in the pelvis under water, and the first dyer performed limited sigmoidoscopy with insufflation of air. This was air tested under pressure on 3 separate accounts. There were no air leaks identified. The first dyer then subsequently opened the sigmoidoscope and the air milked back retrograde, and there was no ball valve effect and no air leak identified. The first dyer now performed a limited rigid sigmoidoscopy to the staple line but not beyond. The mucosa on both sides of the staple line were reported to be viable and without evidence of ischemia. A 10 flat PIERRE placed and left in the left pelvis at the level of the EEA staple line. The pelvis irrigated once again. The chief optometry service retrieved. The operative field noted to be hemostatic. The ports were subsequently removed. The port sites were hemostatic. The fascia at the 12 mm and supraumbilical port site reapproximated with interrupted 0 Vicryl suture. All skin closed with charla, and this PIERRE was sewn with interrupted 3-0 silk suture. At the conclusion of this case, sponge counts were correct. ATTESTATION: Brief operative note handwritten on the preprinted form. [facility] queried prior to giving any narcotics. Shanice HEATON [id number] cc: Dr. Daren Mondragon cc: Dr. Clive DE DIOS
[2017-11-09 07:43] LABS: HEMATOCRIT 38.1 % (35.4-49); HEMOGLOBIN 12.7 GM/dL (11.7-16.9); MCH 29.7 pg (25.7-33.7); MCHC 33.5 g/dl (32.0-35.9); MEAN CELL VOLUME 88.7 fl (80-96); MEAN PLT VOLUME 8.6 fl (7.5-11.1); PLATELET COUNT 187 K/MM3 (134-434); RBC 4.29 M/mm3 (4.00-5.60); RDW 13.7 % (11.9-15.9); WHITE BLOOD COUNT 12.4 K/mm3 (4.0-10.0)
[2017-11-09] MEDS ORDERED: ERTAPENEM SODIUM 1 GM in SODIUM CHLORIDE 100 ML IVPB ONE (08:00)
[2017-11-09] MEDS ORDERED: ERTAPENEM SODIUM 1 GM/50 ML PRE-DOCKED IVPB ONE (08:00)
[2017-11-09 08:18] LABS: CHLORIDE 107 mmol/L (98-107); POTASSIUM 4.4 mmol/L (3.5-5.1); SODIUM 140 mmol/L (136-145)
[2017-11-09 08:23] LABS: ANION GAP 5 (8-16); BLOOD UREA NITROGEN 10 mg/dL (7-18); CALCIUM 8.7 mg/dL (8.5-10.1); CO2 28 mmol/L (21-32); CREATININE 0.8 mg/dL (0.7-1.3); GLUCOSE,RANDOM 97 mg/dL (74-106); MAGNESIUM 2.1 mg/dL (1.8-2.4); PHOSPHOROUS 3.3 mg/dL (2.5-4.9)
[2017-11-09] MEDS ORDERED: PT OWN MED DRAWER 7, Y5N ONE ×2 (08:36→10:09)
--- NOTE | 2017-11-09 09:41 | HP ---
DATE OF ADMISSION: 11/07/2017 REASON FOR ADMISSION: Diverticulitis. BRIEF HISTORY: This is a 52-year-old gentleman that I had met back in September 2017 for recurrent perforated diverticulitis. Patient's H&P at that time was dictated, but due to new CMS guidelines, I am redictating the H&P today after reevaluating him for surgery. Please refer to my previous H&P for complete details. This is a 52-year-old gentleman who underwent 2 bouts of micro perforated diverticulitis. He was hospitalized on each account. He was managed medically and now here for definitive surgical management. PAST MEDICAL HISTORY: No coronary artery disease, hypertension, or diabetes. PAST SURGICAL HISTORY: None. MEDICATIONS: None. ALLERGIES: None. SOCIAL HISTORY: Patient smokes 2 packs of cigarettes daily, does not drink. PHYSICAL EXAMINATION: Abdomen: The abdomen was soft, nontender, nondistended. No peritoneal findings. IMPRESSION/PLAN: Recurrent perforated diverticulitis. Patient has undergone medical management for 2 bouts of perforated diverticulitis. He is now here for definitive surgical management. Patient had a colonoscopy 1 year ago and it was noted to be normal. Patient is scheduled for Lap LAR. The indications, alternatives and complications were discussed. Questions answered. Will plan to obtain written consent to do this surgery as well. Shanice HEATON [id number] cc: Shanice Zamarripa M.D. MTDGilberto
[2017-11-09] MEDS: ENOXAPARIN NA (PORCINE) 40 MG/0.4 ML DISP.SYRIN SQ SCH (10:14)
--- NOTE | 2017-11-09 11:06 | PN ---
Progress Note (short form) - Note Progress Note: surgery pt seen and examined complains of pain from his bad back. wants his lofton out. u/o 1000 afebrile abd- soft, minimmal distension, nt, incisions clean, eloisa sanguinous Laboratory Tests 11/09/17 06:30 WBC 12.4 H D A/P 1) Pod#1- keep npo, ivf, lofton, eloisa 2) morphine, lortab 3) leukocytosis- reactive,should normalized, will follow 4) moephine, oxycodone, no nsaids 5) prophylaxis- lovenox, oob, finish invanz, cont spirometer
[2017-11-09] MEDS: PANTOPRAZOLE SODIUM 40 MG VIAL IVPUSH SCH (11:52)
--- NOTE | 2017-11-09 13:10 | PN ---
Progress Note, Physician Chief Complaint: day #1 s/p laparoscopic LAR - Current Medication List Current Medications: Active Medications Acetaminophen (Tylenol -) 650 mg PO Q4H PRN PRN Reason: FEVER Enoxaparin Sodium (Lovenox -) 40 mg SQ DAILY [facility] Last Admin: 11/09/17 10:14 Dose: 40 mg Potassium Chloride/Dextrose/Sod Cl (D5-1/2ns+10 Meq Kcl -) 10 meq in 1,000 mls @ 75 mls/hr IV ASDIR [facility] Last Admin: 11/08/17 17:56 Dose: 75 mls/hr Morphine Sulfate (Morphine Sulfate) 8 mg IVPB Q3H PRN PRN Reason: PAIN LEVEL 7 - 10 Last Admin: 11/09/17 11:04 Dose: 8 mg Ondansetron HCl (Zofran Injection) 4 mg IVPUSH Q6H PRN PRN Reason: NAUSEA Oxycodone HCl (Roxicodone -) 7.5 mg PO Q4H PRN PRN Reason: PAIN LEVEL 4 - 6 Pantoprazole Sodium (Protonix Iv) 40 mg IVPUSH DAILY [facility] Last Admin: 11/09/17 11:52 Dose: 40 mg - Objective Vital Signs: Vital Signs Temperature 98.2 F 11/09/17 06:00 Pulse Rate 66 11/09/17 06:00 Respiratory Rate 20 11/09/17 06:00 Blood Pressure 109/49 11/09/17 06:00 O2 Sat by Pulse Oximetry (%) 95 11/08/17 21:00 Labs: CBC, BMP 11/09/17 06:30 11/09/17 06:30 Assessment/Plan Doing well, OOB to chair. Resting comfortably with minimal pain; APPLE CHECKER was discontinued earlier.
[2017-11-09] MEDS: D5-1/2NS+10 MEQ KCL - 10 MEQ/1,000 ML INFUS.BAG IV SCH (18:11)
[2017-11-10 07:49] LABS: BASO % 0.2 % (0-2.0); EOS % 0.3 % (0-4.5); HEMATOCRIT 39.9 % (35.4-49); HEMOGLOBIN 13.5 GM/dL (11.7-16.9); LYMPH % 12.4 % (8-40); MCH 29.7 pg (25.7-33.7); MCHC 33.7 g/dl (32.0-35.9); MEAN CELL VOLUME 87.9 fl (80-96); MEAN PLT VOLUME 8.8 fl (7.5-11.1); NEUT % 77.1 % (42.8-82.8); PLATELET COUNT 199 K/MM3 (134-434); RBC 4.54 M/mm3 (4.00-5.60); RDW 13.6 % (11.9-15.9)
[2017-11-10 08:17] LABS: CHLORIDE 106 mmol/L (98-107); POTASSIUM 3.8 mmol/L (3.5-5.1); SODIUM 139 mmol/L (136-145)
[2017-11-10 08:39] LABS: ANION GAP 8 (8-16); BLOOD UREA NITROGEN 10 mg/dL (7-18); CALCIUM 8.9 mg/dL (8.5-10.1); CO2 25 mmol/L (21-32); CREATININE 0.7 mg/dL (0.7-1.3); GLUCOSE,RANDOM 93 mg/dL (74-106); MAGNESIUM 2.1 mg/dL (1.8-2.4); PHOSPHOROUS 2.6 mg/dL (2.5-4.9)
[2017-11-10] MEDS: ENOXAPARIN NA (PORCINE) 40 MG/0.4 ML DISP.SYRIN SQ SCH (09:33)
[2017-11-10] MEDS: PANTOPRAZOLE SODIUM 40 MG VIAL IVPUSH SCH (09:33)
[2017-11-10] MEDS: D5-1/2NS+10 MEQ KCL - 10 MEQ/1,000 ML INFUS.BAG IV SCH ×2 (09:36→21:53)
[2017-11-10] MEDS: morphine SULFATE 4 MG/ML VIAL IVPB PRN (09:49)
--- NOTE | 2017-11-10 13:43 | PN ---
Progress Note (short form) - Note Progress Note: surgery pt seen and examined feels better today. walked earlier. no flatus. afebrile abd- soft, no distension, nt, incisions clean, eloisa serous Laboratory Tests 11/10/17 06:30 WBC 10.0 A/P 1) Pod#2- keep npo, ivf, lofton, eloisa 2) morphine, lortab 3) leukocytosis- resolved 4) morphine, oxycodone, no nsaids 5) prophylaxis- lovenox, oob, off invanz, cont spirometer
--- NOTE | 2017-11-10 18:09 | PATH ---
Surgical Pathology Report Patient Name: MIGUELITO MCCRAY Med. Rec. #: [id number] /Age/Gender: 1965 (Age: 52) / M Account: [id number] Location: [address] [place] [address]/[facility] Taken: 11/08/2017 Received: 11/08/2017 Reported: 11/10/2017 Physicians: Tommy Moreau Specimen(s) Received RECTAL SIGMOID COLON & PROXIMAL END IS WITH COLOTOMY Clinical History Recurrent diverticulitis, history of perforation Final Diagnosis RECTOSIGMOID COLON, LAPAROSCOPIC LOW ANTERIOR RESECTION: SEGMENT OF COLON WITH FOCAL HEMORRHAGE, DIVERTICULOSIS, AND SEROSAL ADHESIONS. SURGICAL MARGINS ARE VIABLE. Electronically Signed Ame Mitchell M.D. Gross Description Received in formalin labeled "rectosigmoid colon," is a 13 cm in length portion of colon with 2 stapled mucosal margins and abundant attached pericolonic adipose tissue. The serosa is nathan-corona with a focal defect at 1.5 cm from the closest (proximal, per the surgeon) mucosal margin. Sectioning reveals focally hemorrhagic mucosa in the area of the defect. The remaining mucosa is nathan with normal folds. No mucosal masses are identified. Sectioning reveals multiple uncomplicated diverticula. Automotive Mechanic sections are submitted in 10 cassettes as follows: 1-proximal mucosal margin; 2-distal mucosal margin; 5-8-xohwvure from defect; [id number] dental sales representative diverticula. /11/09/2017 [facility]11/09/2017
[2017-11-11 05:12] VITALS: BMI 28.3
[2017-11-11] MEDS: morphine SULFATE 4 MG/ML VIAL IVPB PRN (06:09)
[2017-11-11 07:58] LABS: BASO % 0.3 % (0-2.0); HEMATOCRIT 40.6 % (35.4-49); HEMOGLOBIN 13.5 GM/dL (11.7-16.9); LYMPH % 14.9 % (8-40); MCH 29.4 pg (25.7-33.7); MCHC 33.3 g/dl (32.0-35.9); MEAN CELL VOLUME 88.1 fl (80-96); MEAN PLT VOLUME 8.6 fl (7.5-11.1); MONO % 9.8 % (3.8-10.2); PLATELET COUNT 191 K/MM3 (134-434); RBC 4.61 M/mm3 (4.00-5.60); RDW 13.5 % (11.9-15.9); WHITE BLOOD COUNT 8.9 K/mm3 (4.0-10.0)
[2017-11-11 08:39] LABS: ANION GAP 10 (8-16); BLOOD UREA NITROGEN 10 mg/dL (7-18); CALCIUM 8.6 mg/dL (8.5-10.1); CHLORIDE 106 mmol/L (98-107); CO2 24 mmol/L (21-32); GLUCOSE,RANDOM 96 mg/dL (74-106); POTASSIUM 3.9 mmol/L (3.5-5.1); SODIUM 140 mmol/L (136-145)
[2017-11-11 08:42] LABS: CREATININE 0.7 mg/dL (0.7-1.3)
--- NOTE | 2017-11-11 09:08 | PN ---
Progress Note (short form) - Note Progress Note: surgery pt seen and examined feels well. hungry. flatus. afebrile abd- soft, no distension, nt, incisions clean, eloisa serous Laboratory Tests 11/11/17 07:00 WBC 8.9 A/P 1) Pod#3- keep npo, ivf, lofton, eloisa 2) morphine, lortab 3) leukocytosis- resolved 4) morphine, oxycodone, no nsaids 5) prophylaxis- lovenox, oob, spirometer will likely remove lofton tomorrow and start liquids
[2017-11-11] MEDS: ENOXAPARIN NA (PORCINE) 40 MG/0.4 ML DISP.SYRIN SQ SCH (09:13)
[2017-11-11] MEDS: PANTOPRAZOLE SODIUM 40 MG VIAL IVPUSH SCH (09:13)
[2017-11-11] MEDS: D5-1/2NS+10 MEQ KCL - 10 MEQ/1,000 ML INFUS.BAG IV SCH (09:16)
[2017-11-12 09:33] LABS: BASO % 0.3 % (0-2.0); HEMATOCRIT 40.3 % (35.4-49); HEMOGLOBIN 13.6 GM/dL (11.7-16.9); LYMPH % 13.4 % (8-40); MCH 29.4 pg (25.7-33.7); MCHC 33.8 g/dl (32.0-35.9); MEAN PLT VOLUME 8.4 fl (7.5-11.1); MONO % 10.3 % (3.8-10.2); PLATELET COUNT 207 K/MM3 (134-434); RBC 4.62 M/mm3 (4.00-5.60); RDW 13.3 % (11.9-15.9); WHITE BLOOD COUNT 8.8 K/mm3 (4.0-10.0)
[2017-11-12] MEDS: PANTOPRAZOLE SODIUM 40 MG VIAL IVPUSH SCH (09:54)
[2017-11-12] MEDS: ENOXAPARIN NA (PORCINE) 40 MG/0.4 ML DISP.SYRIN SQ SCH (09:54)
[2017-11-12 10:17] LABS: CHLORIDE 105 mmol/L (98-107); POTASSIUM 4.1 mmol/L (3.5-5.1); SODIUM 139 mmol/L (136-145)
[2017-11-12 10:43] LABS: ANION GAP 9 (8-16); BLOOD UREA NITROGEN 10 mg/dL (7-18); CALCIUM 8.6 mg/dL (8.5-10.1); CO2 25 mmol/L (21-32); CREATININE 0.8 mg/dL (0.7-1.3); GLUCOSE,RANDOM 105 mg/dL (74-106); MAGNESIUM 2.2 mg/dL (1.8-2.4); PHOSPHOROUS 3.9 mg/dL (2.5-4.9)
[2017-11-12] MEDS: D5-1/2NS+10 MEQ KCL - 10 MEQ/1,000 ML INFUS.BAG IV SCH (11:53)
--- NOTE | 2017-11-12 13:38 | DS ---
DATE OF ADMISSION: 11/07/2017 DATE OF DISCHARGE: 11/12/2017 ADMITTING DIAGNOSIS: Complicated diverticulitis. DISCHARGE DIAGNOSIS: Complicated diverticulitis. BRIEF HISTORY: This is a 52-year-old male who presented to [facility] for surgical management of complicated diverticulitis. He was admitted on November 07. He underwent IV hydration and bowel preparation. On November 08, he underwent a laparoscopic low anterior resection; please reference Dr. Tommy Moreau's operative report for details. His postoperative course was uneventful. He is being discharged home today, November 12, tolerating a full liquid diet. He is ambulating, he is voiding. He will go home with a Margarito-Garcia drain. At the time of his discharge, his abdomen is soft, nontender. His incision is clean. He will follow with Dr. Moreau in approximately 2 to 3 days to be evaluated for drain removal. He is okay to shower. He will not lift anything more than 20 pounds. He will go home on a liquid diet and not advance to a solid diet until Monday. He will resume his home medications of vitamin D, Proscar, and Flomax and he will have a new prescription for Percocet, which he will take as needed for pain. At the time of his discharge, the pathology report is in draft form, not signed, and it confirms diverticulosis without evidence of malignancy. DO CASEY SCHWARTZ/[id number]
[2017-11-12 14:12] VITALS: BP 123/69; PULSE 69; TEMP 98
== END 2017-11-12 18:17 | disposition home or self-care (01) | DRG 330 ==
LOC: J5S 07:42 → EDSTATUS 08:00 → J6S 11-08 16:34
PROVIDERS: ADMIT Surgery; ATTEND Surgery
PROC: 0D7Q4ZZ Dilation of Anus, Percutaneous Endoscopic Approach (ICD-10-PCS; 2017-11-08)
PROC: 0DJD8ZZ Inspection of Lower Intestinal Tract, Via Natural or Artificial Opening Endoscopic (ICD-10-PCS; 2017-11-08)
PROC: 0DTNFZZ Resection of Sigmoid Colon, Via Natural or Artificial Opening With Percutaneous Endoscopic Assistance (ICD-10-PCS; principal; 2017-11-08 10:30)
DX: K57.20 Diverticulitis of large intestine with perforation and abscess without bleeding (principal); D72.829 Elevated white blood cell count, unspecified
CPT/HCPCS: 36415; 80048; 83735; 84100; 85025; 85027; 86850; 86900; 86901; 93005; 93010; 94760

== ENCOUNTER 2017-11-17 10:56 | Emergency (ER) | payer BC ==
[2017-11-17] MEDS ORDERED: KETOROLAC TROMETHAMINE 15 MG/ML VIAL IM ONE (11:12)
[2017-11-17 11:16] VITALS: BP 145/87; PULSE 97; TEMP 97.7; BMI 27.0
[2017-11-17] MEDS ORDERED: KETOROLAC TROMETHAMINE 30 MG/1 ML VIAL ONE (11:18)
--- NOTE | 2017-11-17 11:20 | PDOC ---
Attending Attestation - Resident Resident Name: MauriciodicksonDerrek - ED Attending Attestation I have performed the following: I have examined & evaluated the patient, The case was reviewed & discussed with the resident, I agree w/resident's findings & plan, Exceptions are as noted - HPI HPI: 11/17/17 11:15 52-year-old male with a history of diverticulitis status post resection 9 days ago, herniated disks presents emergency Department with low back pain since surgery. Patient reports that immobility often exacerbates his low back pain and he states that the 5 days he spent in bed after the surgery made his pain much worse. He reports the pain is similar to his previous herniated disc pain for which she has received steroid injections in the past. He denies any urinary or stool incontinence or retention. Denies any weakness or numbness in his lower extremities. He has tried Tylenol for the pain with no improvement. He was prescribed Percocet after the surgery but he states that he does not like the way Percocet makes him feel. Patient was advised not to take NSAIDs after the surgery. Denies any fevers, chills. Denies headache, chest pain, shortness of breath, abdominal pain. States that his surgical scars are healing well and that the surgical drain was removed a few days ago. - Physicial Exam PE: 11/17/17 11:17 GENERAL: Awake, alert, and fully oriented, in no acute distress HEAD: No signs of trauma EYES: PERRLA, EOMI, sclera anicteric, conjunctiva clear ENT: Auricles normal inspection, hearing grossly normal, nares patent, oropharynx clear without exudates. Moist mucosa NECK: Normal ROM, supple, no lymphadenopathy, JVD, or masses LUNGS: Breath sounds equal, clear to auscultation bilaterally. No wheezes, and no crackles HEART: Regular rate and rhythm, normal S1 and S2, no murmurs, rubs or gallops ABDOMEN: Soft, nontender, normoactive bowel sounds. No guarding, no rebound. No masses. 3 vertical charla above umbulicius, and 9 horizontal charla in suprapubic area c/d/i. Bandage over LLQ site of drain clean and dry. EXTREMITIES: Normal range of motion, no edema. No clubbing or cyanosis. No cords, erythema, or tenderness BACK: no midline cervical, thoracic, or lumbar ttp. +straight leg test NEUROLOGICAL: Normal speech, cranial nerves intact, negative pronator drift, 5/ 5 strength in all 4 extremities, normal sensation to light touch in all 4 extremities, normal cerebellar exam, normal gait, normal reflexes and tone SKIN: Warm, Dry, normal turgor, no rashes or lesions noted. - Medical Decision Making 11/17/17 11:20 52-year-old male with a history of low back pain due to herniated disks presents emergency department complaining of low back pain after being in bed for recent surgery. Patient has no other symptoms. Denies any urinary or stool incontinence or retention. Denies any lower extremity weakness or numbness. Gait and the rest of neurologic exam including reflexes are completely normal. Will treat with toradol acutely, and discuss with surgeon if pt can take NSAIDs now given recent surgery. 11/17/17 12:30 Patient reports pain has completely resolved after Toradol and requests DC home. Discussed NSAID use with Dr. Shah who states the patient can take NSAIDs now since he is postop day 9 and there is low concern at this time for anastomotic leak. Pt DC with naproxen BID PRN. I discussed the physical exam findings, ancillary test results and final diagnoses with the patient. I answered all of the patient's questions. The patient was satisfied with the care received and felt comfortable with the discharge plan and treatment plan. The patient will call their primary care physician within 24 hours to arrange follow-up and will return to the Emergency Department with any new, persistent or worsening symptoms. Discharge Disposition - Diagnosis Back pain Qualifiers: Back pain location: low back pain Chronicity: acute Back pain laterality: bilateral Sciatica presence: without sciatica Qualified Code(s): M54.5 - Low back pain - Discharge Dispostion Disposition: HOME Condition at time of disposition: Stable Last Admission D/C Date: 11/12/17 Decision to Admit order: No - Prescriptions Prescriptions: Naproxen 500 mg PO BID PRN #20 tablet PRN Reason: Back Pain - Referrals Referrals: Param Kessler MD [Primary Care Provider] - - Patient Instructions Printed Discharge Instructions: Tips to Help You Stop Smoking, DI for Low Back Pain Additional Instructions: Please follow up with your primary care physician in 2-3 days. Please return to the ER if you have any signs or symptoms of chest pain, shortness of breath, uncontrollable fever, chills, nausea, vomiting, numbness, tingling, or weakness in any part of your body, changes in vision, or slurred speech. Please take your medications as prescribed. Please return to the ER if symptoms persist, worsen, or new symptoms arise. - Post Discharge Activity
--- NOTE | 2017-11-17 11:26 | PDOC ---
History of Present Illness - General Chief Complaint: Back Pain Stated Complaint: LOW BACK PAIN Time Seen by Provider: 11/17/17 10:58 History Source: Patient Exam Limitations: No Limitations - History of Present Illness Initial Comments: 11/17/17 11:24 The patient is a 52M with a PMH of herniated lumbar discs and diverticulosis s/ p anterior resection on 11/08/17 who presents to the ER with worsening back pain. The patient states that since he had his operation and laid in bed, his back has began to hurt him and the pain has worsened to the point where he cannot get any sleep. He denies any trauma, fever, chills, saddle anesthesia, numbness, tingling, weakness, IVDA, and headaches. He states the pain is exactly like the pain he had prior to getting corticosteroid injections. Past History - Past Medical History Allergies/Adverse Reactions: Allergies Allergy/AdvReac Type Severity Reaction Status Date / Time piperacillin sodium Allergy Rash Verified 11/17/17 11:01 [From Zosyn] tazobactam sodium Allergy Rash Verified 11/17/17 11:01 [From Zosyn] Bee stings Allergy Uncoded 11/17/17 11:01 Home Medications: Ambulatory Orders Cholecalciferol (Vitamin D3) [Vitamin D3] 5,000 unit PO DAILY 11/07/17 Finasteride [Proscar] 5 mg PO DAILY 11/07/17 Tamsulosin HCl [Flomax] 0.4 mg PO DAILY 11/07/17 Oxycodone HCl/Acetaminophen [Percocet 5-325 mg Tablet] 1 tab PO Q4H PRN #42 tablet MDD 6 11/12/17 Acetaminophen [Tylenol -] 1,000 mg PO Q6H PRN 11/17/17 Naproxen 500 mg PO BID PRN #20 tablet 11/17/17 Anemia: No Asthma: No Cancer: No Cardiac Disorders: No CVA: No COPD: No CHF: No DVT: No Dementia: No Diabetes: No Dialysis: No GI Disorders: Yes (COLITIS) Disorders: Yes (ENLARGED PROSTATE) HTN: No Hypercholesterolemia: No Kidney Stones: No Liver Disease: No Psychiatric Problems: No Seizures: No Thyroid Disease: No Lung CA: No - Surgical History GI Surgery: Yes (COLON RESECTION FOR DIVERTICULITS) - Suicide/Smoking/Psychosocial Hx Smoking Status: Yes Smoking History: Current every day smoker Have you smoked in the past 12 months: Yes Number of Cigarettes Smoked Daily: 30 Cigars Per Day: 0 Information on smoking cessation initiated: Yes 'Breaking Loose' booklet given: 08/15/17 Hx Alcohol Use: No Drug/Substance Use Hx: No Substance Use Type: None Hx Substance Use Treatment: No Review of Systems - Review of Systems Able to Perform ROS?: Yes Comments:: 11/17/17 11:32 GENERAL/CONSTITUTIONAL: No fever or chills. No weakness. HEAD, EYES, EARS, NOSE AND THROAT: No change in vision. No ear pain or discharge. No sore throat. CARDIOVASCULAR: No chest pain, palpitations, or lightheadedness. RESPIRATORY: No cough, wheezing, shortness of breath, or hemoptysis. GASTROINTESTINAL: Positive for recent abdominal surgery. No nausea, vomiting, diarrhea, constipation, or abdominal pain. GENITOURINARY: No dysuria, frequency, hematuria, or change in urination. MUSCULOSKELETAL: Positive for back pain. No joint or muscle swelling or pain. No neck pain. SKIN: No rash or lesions. NEUROLOGIC: No headache, numbness, tingling, weakness, loss of consciousness, or change in strength/sensation. ENDOCRINE: No increased thirst. No abnormal weight change. HEMATOLOGIC/LYMPHATIC: No anemia, easy bleeding, or history of blood clots. ALLERGIC/IMMUNOLOGIC: No hives or skin allergy. Is the patient limited Algerian proficient: No *Physical Exam - Vital Signs Last Vital Signs Temp Pulse Resp BP Pulse Ox 97.7 F 97 H 16 145/87 100 11/17/17 10:57 11/17/17 10:57 11/17/17 10:57 11/17/17 10:57 11/17/17 10:57 - Physical Exam Comments: 11/17/17 11:32 GENERAL: Well developed, well nourished. Awake and alert. No acute distress. HEENT: Normocephalic, atraumatic. Hearing grossly normal. Moist mucous membranes. PERRLA, EOMI. No conjunctival pallor. Sclera are non-icteric. NECK: Supple. Full ROM. CARDIOVASCULAR: Regular rate and rhythm. No murmurs, rubs, or gallops. Distal pulses are 2+ and symmetric. PULMONARY: No evidence of respiratory distress. Lungs clear to auscultation bilaterally. No wheezing, rales or rhonchi. ABDOMINAL: Well-healing scars stapled together on anterior abdomen. Soft. Non- tender. Non-distended. No rebound or guarding. No organomegaly. Normoactive bowel sounds. GENITOURINARY: No CVA tenderness bilaterally. MUSCULOSKELETAL: No point tenderness over spine. Normal range of motion at all joints. No bony deformities or tenderness. EXTREMITIES: No cyanosis. No clubbing. No edema. No calf tenderness or swelling. SKIN: Warm and dry. Normal capillary refill. No rashes. No jaundice. NEUROLOGICAL: Alert, awake, appropriate. Cranial nerves 2-12 intact. No motor deficits in the in face, upper extremities and lower extremities. Normoreflexic in the upper and lower extremities. TNormal speech. Gait is normal without ataxia. PSYCHIATRIC: Cooperative. Good eye contact. Appropriate mood and affect. ED Treatment Course - Medications Given in the ED: ED Medications Discontinued Medications Generic Name Dose Route Start Last Admin Trade Name Freq PRN Reason Stop Dose Admin Ketorolac Tromethamine 30 mg 11/17/17 11:12 11/17/17 11:22 Toradol Injection - IM 11/17/17 11:13 30 mg ONCE ONE Administration Medical Decision Making - Medical Decision Making 11/17/17 11:33 The patient is a 52M with a PMH of lumber herniated discs who presents to the ER with worsening back pain 2/2 to laying in bed after his surgery. His surgery was 8 days ago. I paged Dr. Mack to confirm that he can get toradol. Will control pain and monitor. Pt noted to be pacing around ER with no problems. 11/17/17 12:00 Dr. Mack paged x 2. Pt states he feels much better. Pending call back. *DC/Admit/Observation/Transfer Diagnosis at time of Disposition: Back pain Qualifiers: Back pain location: low back pain Chronicity: acute Back pain laterality: bilateral Sciatica presence: without sciatica Qualified Code(s): M54.5 - Low back pain - Discharge Dispostion Disposition: HOME Condition at time of disposition: Stable Decision to Admit order: No - Prescriptions Prescriptions: Naproxen 500 mg PO BID PRN #20 tablet PRN Reason: Back Pain - Referrals Referrals: Param Kessler MD [Primary Care Provider] - - Patient Instructions Printed Discharge Instructions: Tips to Help You Stop Smoking Additional Instructions: Please follow up with your primary care physician in 2-3 days. Please return to the ER if you have any signs or symptoms of chest pain, shortness of breath, uncontrollable fever, chills, nausea, vomiting, numbness, tingling, or weakness in any part of your body, changes in vision, or slurred speech. Please take your medications as prescribed. Please return to the ER if symptoms persist, worsen, or new symptoms arise. - Post Discharge Activity
== END 2017-11-17 12:41 | disposition home or self-care (01) ==
LOC: FER 10:56
PROC: 3E0233Z Introduction of Anti-inflammatory into Muscle, Percutaneous Approach (ICD-10-PCS; principal; 2017-11-17)
DX: M54.5 Low back pain (principal); F17.210 Nicotine dependence, cigarettes, uncomplicated
CPT/HCPCS: 99282-25

== ENCOUNTER 2018-02-13 07:26 | Emergency (ER) | payer BC ==
[2018-02-13 07:31] VITALS: BP 133/94; PULSE 80; TEMP 98.4; BMI 30.1
[2018-02-13] MEDS ORDERED: KETOROLAC TROMETHAMINE 60 MG/2 ML VIAL IM ONE (07:39)
[2018-02-13] MEDS ORDERED: METHOCARBAMOL 500 MG TABLET PO ONE (07:39)
--- NOTE | 2018-02-13 07:39 | PDOC ---
History of Present Illness - General Chief Complaint: Pain, Acute Stated Complaint: LOW BACK PAIN Time Seen by Provider: 02/13/18 07:29 - History of Present Illness Initial Comments: 02/13/18 07:40 53yo male presents ambulatory with a steady gait to the ED for eval of lbp. States he was raking last week and his chronic lbp flared up. Pt follows with DR. Chávez for epidural injections - last saw him in June. Had an epidural injection at that time. Was recommended to undergo PT, but never did PT. Pt was seen in the ED in November for similar pain and given naproxen. Started to take the naproxen again last week without improvement of pain. NO signs/symptoms of caude equina. No midline pain. C/o b/l SI joint pain. No radiation of the pain down legs. No paresthesias. No weakness. Pt without urinary or bowel incontinence. Pt ambulates with a steady gait. Pt states he took tylenol as well yesterday for the pain. No f/c. NO urinary complaitns. NO abd pain. No n/v/ d. No other complaitns. Pt states he needs a work note. PMHx: diverticulitis, bph, herniated discs to lumbar spine. PShx: epidural injections to low back, colon resection for diverticular disease All: bees, zosyn Meds: naprosyn Past History - Past Medical History Allergies/Adverse Reactions: Allergies Allergy/AdvReac Type Severity Reaction Status Date / Time piperacillin sodium Allergy Rash Verified 02/13/18 07:27 [From Zosyn] tazobactam sodium Allergy Rash Verified 02/13/18 07:27 [From Zosyn] Bee stings Allergy Uncoded 02/13/18 07:27 Home Medications: Ambulatory Orders Cholecalciferol (Vitamin D3) [Vitamin D3] 5,000 unit PO DAILY 11/07/17 Finasteride [Proscar] 5 mg PO DAILY 11/07/17 Tamsulosin HCl [Flomax] 0.4 mg PO DAILY 11/07/17 Methocarbamol [Robaxin -] 500 mg PO TID PRN #12 tablet 02/13/18 Anemia: No Asthma: No Cancer: No Cardiac Disorders: No CVA: No COPD: No CHF: No DVT: No Dementia: No Diabetes: No Dialysis: No GI Disorders: Yes (COLITIS) Disorders: Yes (ENLARGED PROSTATE) HTN: No Hypercholesterolemia: No Kidney Stones: No Liver Disease: No Psychiatric Problems: No Seizures: No Thyroid Disease: No Lung CA: No - Surgical History GI Surgery: Yes (COLON RESECTION FOR DIVERTICULITS) - Suicide/Smoking/Psychosocial Hx Smoking Status: Yes Smoking History: Current every day smoker Have you smoked in the past 12 months: Yes Number of Cigarettes Smoked Daily: 30 Cigars Per Day: 0 Information on smoking cessation initiated: No 'Breaking Loose' booklet given: 08/15/17 Hx Alcohol Use: No Drug/Substance Use Hx: No Substance Use Type: None Hx Substance Use Treatment: No Review of Systems - Review of Systems Able to Perform ROS?: Yes Is the patient limited Italian proficient: No Constitutional: No: Chills, Fever HEENTM: No: Nose Congestion, Throat Pain Respiratory: No: Cough, Shortness of Breath Cardiac (ROS): No: Chest Pain ABD/GI: No: Diarrhea, Nausea, Vomiting, Abdominal cramping : No: Burning, Dysuria, Incontinence Musculoskeletal: Yes: Back Pain. No: Neck Pain Integumentary: No: Rash Neurological: No: Headache, Numbness, Paresthesia, Weakness, Unsteady Gait All Other Systems: Reviewed and Negative *Physical Exam - Vital Signs Last Vital Signs Temp Pulse Resp BP Pulse Ox 98.4 F 80 17 133/94 100 02/13/18 07:26 02/13/18 07:26 02/13/18 07:26 02/13/18 07:26 02/13/18 07:26 - Physical Exam General Appearance: Yes: Nourished, Appropriately Dressed, Other (ambulates with a steady gait, laughing, in NAD). No: Apparent Distress HEENT: positive: EOMI, Normal Voice. negative: Rhinorrhea Neck: positive: Trachea midline, Supple. negative: Tender, Decreased range of motion, Tender lateral, Tender midline Respiratory/Chest: positive: Lungs Clear, Normal Breath Sounds. negative: Chest Tender Cardiovascular: positive: Regular Rhythm, Regular Rate, S1, S2 Gastrointestinal/Abdominal: positive: Normal Bowel Sounds, Other (incision to lower abd is well healed). negative: Guarding, Rebound, Tenderness Musculoskeletal: positive: Decreased Range of Motion (pain with flexion of lumbar spine, FROM of extension and rotation), Muscle Spasm, Other (ambualtes with a steady gait). negative: CVA Tenderness, Vertebral Tenderness Integumentary: positive: Normal Color, Dry, Warm Neurologic: positive: ski topper II-XII NML intact, Fully Oriented, Alert, Motor Strength 5/5. negative: Sensory Deficit Medical Decision Making - Medical Decision Making 02/13/18 07:46 a/p: 53yo male with lbp -hx of herniated discs -no red flags -no paresthesias, radiation of pain, no saddle paresthesias, no weakness, ambulates with a steady gait -pt taking naproyxn for pain without relief -will obtain new xray -will give toradol and robaxin for pain -will monitor and reassess 02/13/18 07:54 pt lounging in the bed in no apparent distress, very comfortable 02/13/18 08:22 re-eval: pt states pain is much improved after the medication pending xrays 02/13/18 09:12 mild scoliosis to lumbar spine, no changes 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 neuro intact stable for d/c to home *DC/Admit/Observation/Transfer Diagnosis at time of Disposition: Back pain - Discharge Dispostion Disposition: HOME Condition at time of disposition: Stable Decision to Admit order: No - Prescriptions Prescriptions: Methocarbamol [Robaxin -] 500 mg PO TID PRN #12 tablet PRN Reason: Muscle Spasms - Referrals Referrals: Param Kessler MD [Primary Care Provider] - Brendan Collier MD, FA[facility] [Staff Physician] - Gt Goodrich MD [Staff Physician] - - Patient Instructions Printed Discharge Instructions: DI for Low Back Pain Additional Instructions: Please make an appointment to see your PMD and back specialist this week. Please soak in an epson salt bath. Please take all medications as prescribed. Please return to the ED with any further concerns or complaints. - Post Discharge Activity Forms/Work/School Notes: Back to Work - Attestations Physician Attestion: 02/13/18 07:48 I, Dr. Rimma Carter, DO, attest that this document has been prepared under my direction and personally reviewed by me in its entirety. I further attest, that it accurately reflects all work, treatment, procedures and medical decision -making performed by me.
[2018-02-13] MEDS ORDERED: METHOCARBAMOL 500 MG TABLET ONE (07:42)
[2018-02-13] MEDS ORDERED: KETOROLAC TROMETHAMINE 60 MG/2 ML VIAL ONE (07:42)
== END 2018-02-13 09:17 | disposition home or self-care (01) ==
LOC: FER 07:26
PROC: 3E0233Z Introduction of Anti-inflammatory into Muscle, Percutaneous Approach (ICD-10-PCS; principal; 2018-02-13)
DX: M54.5 Low back pain (principal); F17.210 Nicotine dependence, cigarettes, uncomplicated
CPT/HCPCS: 72100-TC-FY; 99281-25

== ENCOUNTER 2019-02-09 14:41 | Inpatient (IN) | payer OTHER ==
[2019-02-09 14:55] VITALS: BMI 30.4
--- NOTE | 2019-02-09 15:06 | PDOC ---
Suture Removal/Wound Check HPI - History of Present Illness Chief Complaint: Wound Stated Complaint: INCISION LEAK Time Seen by Provider: 02/09/19 14:50 History Source: Yes: Patient Exam Limitations: Yes: No Limitations Treated at: [facility] ED - Previous ED Treatment Type of procedure performed on last visit: Yes: Other Tetanus Immunization: Yes: Up to Date - Onset of Previous Treatment Comment:: 02/09/19 16:10 Patient came per request of Dr. Isauro Meade to follow up in emergency department for wound evaluation. Patient status post laminectomy 2 weeks ago at [facility] by Dr. Meade and has reported worsening of drainage from wound site. is changing dressings daily but states has worsened amount of fluid where she needs to change the dressing 2-3 times a day. Patient denies fever, denies pain at site, denies any swelling or redness of the area but drainage which seems to be clear in nature has progressively worsened. Heavy lifting/activity. In fact states since his laminectomy his sciatica and lower leg pain is resolving. Past History - Travel Traveled outside of the country in the last 30 days: No Close contact w/someone who was outside of country & ill: No - Past Medical History Allergies/Adverse Reactions: Allergies Allergy/AdvReac Type Severity Reaction Status Date / Time piperacillin sodium Allergy Rash Verified 02/09/19 14:48 [From Zosyn] tazobactam sodium Allergy Rash Verified 02/09/19 14:48 [From Zosyn] Bee stings Allergy Uncoded 02/09/19 14:48 Home Medications: Ambulatory Orders Cholecalciferol (Vitamin D3) [Vitamin D3] 5,000 unit PO DAILY 11/07/17 Finasteride [Proscar] 5 mg PO DAILY 11/07/17 Tamsulosin HCl [Flomax] 0.4 mg PO DAILY 11/07/17 Methocarbamol [Robaxin -] 500 mg PO TID PRN #12 tablet 02/13/18 Anemia: No Asthma: No Cancer: No Cardiac Disorders: No CVA: No COPD: No CHF: No DVT: No Dementia: No Diabetes: No Dialysis: No GI Disorders: Yes (COLITIS) Disorders: Yes (ENLARGED PROSTATE) HTN: No Hypercholesterolemia: No Kidney Stones: No Liver Disease: No Psychiatric Problems: No Seizures: No Thyroid Disease: No Lung CA: No - Surgical History GI Surgery: Yes (COLON RESECTION FOR DIVERTICULITS) - Suicide/Smoking/Psychosocial Hx Smoking Status: Yes Smoking History: Never smoked Have you smoked in the past 12 months: Yes Number of Cigarettes Smoked Daily: 30 Cigars Per Day: 0 'Breaking Loose' booklet given: 08/15/17 Hx Alcohol Use: No Drug/Substance Use Hx: No Substance Use Type: None Hx Substance Use Treatment: No Suture Removal/Wound Check PE - Physical Exam Laceration/Wound Check Symptoms: reports: None Current Severity Level: None Maximum Severity Level: None *Review of Systems - Review of Systems Able to Perform ROS?: Yes Constitutional: Yes: Symptoms Reported, See HPI HEENTM: Yes: Symptoms Reported Respiratory: No: Symptoms reported Cardiac (ROS): No: Symptoms Reported Integumentary: Yes: Symptoms Reported, See HPI, Lesions, Other (dressings removed to reveal a well approximated suture line however with a fluctuant nontender mass underneath wound. With small amount of pressure a significant amount of serous fluid was expressed and inferior aspect of wound site.). No: Erythema All Other Systems: Reviewed and Negative *Physical Exam - Vital Signs Last Vital Signs Temp Pulse Resp BP Pulse Ox 97.8 F 90 18 118/72 99 02/09/19 14:46 02/09/19 14:46 02/09/19 14:46 02/09/19 14:46 02/09/19 14:46 - Physical Exam General Appearance: Yes: Nourished, Appropriately Dressed. No: Apparent Distress HEENT: positive: ASHISH, Normal ENT Inspection, TMs Normal, Pharynx Normal Neck: positive: Tender, Supple Respiratory/Chest: positive: Lungs Clear Gastrointestinal/Abdominal: positive: Soft. negative: Tender Musculoskeletal: positive: Normal Inspection, Decreased Range of Motion (post operative). negative: Vertebral Tenderness Extremity: positive: Normal Capillary Refill, Normal Inspection, Other (lower extremities are pale, however neurovascular intact. 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 Meade returned phone call reinforced patient's need for admission for possible reoperative exploration of wound site. Labs drawn, Dr. Rodriguez given case turnover and introduced the patient and his . Labs have been drawn, CAT scan ordered and patient updated to plan. 02/09/19 16:18 *DC/Admit/Observation/Transfer Diagnosis at time of Disposition: Back pain - Discharge Dispostion Disposition: HOME Condition at time of disposition: Stable Decision to Admit order: No - Referrals Referrals: Param Kessler MD [Primary Care Provider] - - Patient Instructions - Post Discharge Activity
[2019-02-09] MEDS ORDERED: VANCOMYCIN 1 GM in D5W (PRE-DOCKED) 1,000 MG/250 ML IVPB ONE (15:27)
[2019-02-09] MEDS ORDERED: VANCOMYCIN 1 GRAM (PRE-DOCKED) 1,000 MG/250 ML BAG IVPB ONE (15:41)
[2019-02-09 15:43] LABS: BASO % 0.7 % (0-2.0); EOS % 1.3 % (0-4.5); HEMATOCRIT 38.3 % (35.4-49); LYMPH % 23.3 % (8-40); MCH 29.4 pg (25.7-33.7); MCHC 33.9 g/dl (32.0-35.9); MEAN CELL VOLUME 86.7 fl (80-96); MEAN PLT VOLUME 7.5 fl (7.5-11.1); MONO % 8.4 % (3.8-10.2); NEUT % 66.3 % (42.8-82.8); RBC 4.42 M/mm3 (4.00-5.60); RDW 14.2 % (11.9-15.9); WHITE BLOOD COUNT 11.4 K/mm3 (4.0-10.0)
[2019-02-09 15:53] LABS: INR 1.11 (0.83-1.09); PROTHROMBIN TIME (PATIENT) 13.1 SEC (9.7-13.0)
[2019-02-09 15:58] LABS: PLATELET COUNT 348 K/MM3 (134-434)
[2019-02-09 15:58] LABS: ALBUMIN 3.3 g/dl (3.4-5.0); BILIRUBIN,TOTAL 0.5 mg/dL (0.2-1); BLOOD UREA NITROGEN 16.2 mg/dL (7-18); CALCIUM 9.1 mg/dL (8.5-10.1); CREATININE 0.8 mg/dL (0.55-1.3)
--- NOTE | 2019-02-09 16:44 | PDOC ---
*Physical Exam - Vital Signs Last Vital Signs Temp Pulse Resp BP Pulse Ox 97.8 F 90 18 118/72 99 02/09/19 14:46 02/09/19 14:46 02/09/19 14:46 02/09/19 14:46 02/09/19 14:46 ED Treatment Course - LABORATORY CBC & Chemistry Diagram: 02/09/19 15:30 02/09/19 15:27 - ADDITIONAL ORDERS Additional order review: Laboratory Results 02/09/19 02/09/19 02/09/19 15:30 15:30 15:27 PT with INR 13.10 H INR 1.11 H Sodium 139 Potassium 4.0 Chloride 105 Carbon Dioxide 27 Anion Gap 7 L BUN 16.2 Creatinine 0.8 Est GFR (CKD-EPI)AfAm 115.74 Est GFR (CKD-EPI)NonAf 99.86 Random Glucose 101 Calcium 9.1 Total Bilirubin 0.5 AST 12 L ALT 44 Alkaline Phosphatase 91 Total Protein 7.0 Albumin 3.3 L Blood Type A POSITIVE Antibody Screen Negative 02/09/19 15:30 RBC 4.42 MCV 86.7 MCHC 33.9 RDW 14.2 MPV 7.5 D Neutrophils % 66.3 Lymphocytes % 23.3 D Monocytes % 8.4 Eosinophils % 1.3 Basophils % 0.7 - RADIOLOGY Radiology Studies Ordered: Category Date Time Status LUMBAR SPINE CT W/O CONTRAST [CT] Stat CT Scan 02/09/19 16:09 Ordered - Medications Given in the ED: ED Medications Discontinued Medications Generic Name Dose Route Start Last Admin Trade Name Freq PRN Reason Stop Dose Admin Vancomycin HCl 1,000 mg 02/09/19 15:27 02/09/19 15:57 Vancomycin (Pre-Docked) IVPB 02/09/19 15:28 1,000 mg ONCE ONE Administration Protocol Medical Decision Making - Medical Decision Making 02/09/19 16:42 Pt transferred to the main ED as he will require admission and possible OR exploration given increased drainage from surgical wound. Labs with mild leukocytosis to 11, otherwise unremarkable CT Lumbar spine non con pending - will do without contrast per dr. Meade as pt may get contrast with MRI tomorrow AM if CT is not diagnostic Dr. Meade requests Vancomycin and he will call Dr. Sweeney for other abx coverage Dr. Meade requests admission to medicine, will microblog 02/09/19 17:08 Case discussed with [employer] Daugherty, pt admitted to Dr. Aleman's service Case discussed in detail with admitting physician including history, physical exam and ancillary studies. Admitting physician has assumed care for the patient, will follow all pending diagnostics and will complete the evaluation and treatment. *DC/Admit/Observation/Transfer Diagnosis at time of Disposition: Back pain - Discharge Dispostion Condition at time of disposition: Stable - Referrals Referrals: Param Kessler MD [Primary Care Provider] - - Patient Instructions - Post Discharge Activity - Attestations Physician Attestion: 02/09/19 17:11 I, Dr. Wesley New MD, attest that this document has been prepared under my direction and personally reviewed by me in its entirety. I further attest, that it accurately reflects all work, treatment, procedures and medical decision -making performed by me.
[2019-02-09] MEDS ORDERED: METHOCARBAMOL 500 MG TABLET PO PRN (17:07)
[2019-02-09] MEDS ORDERED: ACETAMINOPHEN 325 MG TABLET (FP) PO PRN (17:09)
[2019-02-09] MEDS ORDERED: SENNOSIDES 8.6MG TABLET (FP) PO PRN (17:09)
--- NOTE | 2019-02-09 17:16 | HP ---
Admitting History and Physical - Primary Care Physician PCP: Param Kessler M - Admission Chief Complaint: s/p laminectomy, increased wound drainage History of Present Illness: 54 year old m with h/o HLD, diverticulitis s/p resection and chronic LBP due to herniated disks now s/p s/p L L2-3 and L3-4, R L3-4, L4-5 decompression 10 days ago presents to ED for evaluation due to increased drainage at incision site. Mr. Perez reported being prescribed levaquin 500mg on the day of discharge due to low grade temps, after two days of this abx, he was switched to keflex 500mg BID which he has been taking consistently. His Post-op course, while at home, he noted increased incision drainage and was evaluated by his surgeon, where he had wound cx done (reported as negative). At he request of his Surgeon, he presented to [facility] for further evaluation. In ED , labs unremarkable, except mild Leukocytosis (WBC =11). CT L-spine done ( results pending). Pt dosed vanco 1G and restarted in levaquin 500mg IVSS Vitals: BP 129/83, HR 82, T 97.8, RR 16, O2 sat 99% History Source: Patient Limitations to Obtaining History: No Limitations - Past Medical History Cardiovascular: Yes: Hyperlipdemia Renal/: Yes: BPH Musculoskeletal: Yes: Chronic low back pain Additional Past Medical History: hearing loss tobacco dependence - Past Surgical History Past Surgical History: Yes: Laminectomy Additional Past Surgical History: diverticulitis s/p bowel resection - Smoking History Smoking history: Current every day smoker Have you smoked in the past 12 months: Yes Aproximately how many cigarettes per day: 20 (1PPD x 30yrs) - Alcohol/Substance Use Hx Alcohol Use: No History of Substance Use: reports: None - Social History Usual Living Arrangement: Yes: With Spouse ADL: Independent 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, 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 History of Recent Travel: No Home Medications - Allergies Allergies/Adverse Reactions: Allergies Allergy/AdvReac Type Severity Reaction Status Date / Time piperacillin sodium Allergy Rash Verified 02/09/19 14:48 [From Zosyn] tazobactam sodium Allergy Rash Verified 02/09/19 14:48 [From Zosyn] Bee stings Allergy Uncoded 02/09/19 14:48 - Home Medications Home Medications: Ambulatory Orders Cholecalciferol (Vitamin D3) [Vitamin D3] 5,000 unit PO DAILY 11/07/17 Finasteride [Proscar] 5 mg PO DAILY 11/07/17 Tamsulosin HCl [Flomax] 0.4 mg PO DAILY 11/07/17 Cyclobenzaprine HCl 10 mg PO TID 02/09/19 Oxycodone HCl 5 mg PO QID 02/09/19 Pravastatin Sodium 1 tab PO HS 02/09/19 Family Disease History - Family Disease History Family Disease History: Other: Father (Alive (88) CAD s/p 3V CABG), Mother ( (60) CVA), Brother ( (45) drug overdose), Sister (alive (63) unknown) Review of Systems - Review of Systems Constitutional: reports: No Symptoms Eyes: reports: No Symptoms HENT: reports: Hearing Loss ("from years of using heavy duty machines") Neck: reports: No Symptoms Cardiovascular: reports: No Symptoms Respiratory: reports: No Symptoms Gastrointestinal: reports: No Symptoms Genitourinary: reports: No Symptoms Breasts: reports: No Symptoms Reported Musculoskeletal: reports: No Symptoms Integumentary: reports: Wound (light red drainage) Neurological: reports: Unsteady Gait (ambulates with a cane) Endocrine: reports: No Symptoms Hematology/Lymphatic: reports: No Symptoms Psychiatric: reports: No Symptoms Physical Examination Vital Signs: Vital Signs Temperature 97.8 F 02/09/19 14:46 Pulse Rate 90 02/09/19 14:46 Respiratory Rate 18 02/09/19 14:46 Blood Pressure 118/72 02/09/19 14:46 O2 Sat by Pulse Oximetry (%) 99 02/09/19 14:46 Constitutional: Yes: Well Nourished, No Distress, Calm Eyes: Yes: Conjunctiva Clear, EOM Intact, PERRL HENT: Yes: Atraumatic, Normocephalic, Other (full upper dentures) Cardiovascular: Yes: Regular Rate and Rhythm Respiratory: Yes: Regular, CTA Bilaterally Gastrointestinal: Yes: Normal Bowel Sounds, Soft ...Rectal Exam: Yes: Deferred Breast(s): Yes: WNL Musculoskeletal: Yes: WNL Edema: No Peripheral Pulses WNL: Yes Peripheral Pulses: Left Radial: 2+, Right Radial: 2+ Integumentary: Yes: Incision (Lumbar spine incision with mild induration, which is non-tender to palpation, dressing partially soiled with serosangineous fluid. no odor no redness or warmth noted.) Neurological: Yes: Alert, Oriented ...Motor Strength: WNL Psychiatric: Yes: Alert, Oriented Labs: CBC, BMP 02/09/19 15:30 02/09/19 15:27 Imaging - Results Cat Scan: Report Reviewed (CT Lspine 02/09/2019 Impression:No lumbar spine fractures or dislocations. 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 Broad based disc bulges are noted at L2-3 and L4-5. Post surgical changes are noted within the soft tissues some accumulation of fluid posterior to the spinous processes extending from the L1-L2 level down through L3-4. Further evaluation with MRI imaging is recommended to assess fro possible nerve root compromise in the lateral recessses at the L4-5 and L3-4, and to rule out seroma vs inflammation in the soft tissues.) Problem List - Problems (1) BPH (benign prostatic hyperplasia) Assessment/Plan: continue flomax and finasteride Code(s): N40.0 - BENIGN PROSTATIC HYPERPLASIA WITHOUT LOWER URINRY TRACT SYMP (2) Wound drainage Assessment/Plan: VaNCO 1G daily, (creatinine is normal, therefore could be dosed BID) Levaquin 500mg IV Q24hrs ID consult placed f/u blood and wound cultures Surgery: Dr. Meade to see patient in the morning CT L-spine read pending. LR @ 42ml/hr Code(s): T14.8XXA - OTHER INJURY OF UNSPECIFIED BODY REGION, INITIAL ENCOUNTER (3) S/P laminectomy Assessment/Plan: BID dressing changes pain control w/ oxycodone, apap AND cyclobenzaprine Code(s): Z98.890 - OTHER SPECIFIED POSTPROCEDURAL STATES (4) Prophylactic measure Assessment/Plan: SC heparin BID ambulate as tolerated fall precautions - utilize cane PRN bowel regimen with senna/colace daily vitamin D 3 Code(s): Z29.9 - ENCOUNTER FOR PROPHYLACTIC MEASURES, UNSPECIFIED (5) Hyperlipidemia Assessment/Plan: pravachol 10mg qhs cardiac diet Code(s): E78.5 - HYPERLIPIDEMIA, UNSPECIFIED Assessment/Plan DISPO: home when stable Code status: Full Visit type - Emergency Visit Emergency Visit: Yes ED Registration Date: 02/09/19 Care time: The patient presented to the Emergency Department on the above date and was hospitalized for further evaluation of their emergent condition. - New Patient This patient is new to me today: Yes Date on this admission: 02/09/19 - Critical Care Critical Care patient: No
[2019-02-09] MEDS: LACTATED RINGERS SOLUTION 1,000 ML IV SCH (18:15)
[2019-02-09] MEDS ORDERED: ACETAMINOPHEN 325 MG TABLET (FP) ONE ×2 (18:57→20:59)
--- NOTE | 2019-02-09 20:53 | PN ---
Progress Note (short form) - Note Progress Note: NEUROSURGERY Pt s/p L L2-3 and L3-4, R L3-4, L4-5 decompression 10 days ago Increasing serosangrenous drainage over the past 4-5 days or so LBP; no fever Prior wound swab gram stain and culture negative from 3 days ago T 97.8, VSS Wound drainage gram stain and culture pending Blood culture pending WBC 11.4 CT LS spine recommended to delineate bony anatomy Most likely need LS spine MRI with diane to better delineate fluid collection Given persistent drainage (despite being serosangrenous in nature, non- purulent and negative recent culture, and no fever) would recommend debridement , drain placement, and iv abx if the trend continues Wound care Started iv abx after cultures taken Care d/w ED attending
[2019-02-09] MEDS ORDERED: CIPROFLOXACIN 400 MG/D5W 400 MG/200 ML IVPB IVPB SCH (22:00)
[2019-02-09] MEDS ORDERED: CYCLOBENZAPRINE HCL 10 MG TABLET (FP) ONE (22:25)
[2019-02-09] MEDS ORDERED: ATORVASTATIN CA 10 MG TABLET (FP) ONE (22:25)
[2019-02-09] MEDS ORDERED: HEPARIN NA (PORCINE) 5,000 UNITS/ML 1ML VIAL ONE (22:25)
[2019-02-09] MEDS: CYCLOBENZAPRINE HCL 10 MG TABLET (FP) PO SCH (22:40)
[2019-02-09] MEDS: HEPARIN NA (PORCINE) 5,000 UNITS/ML 1ML VIAL SQ SCH (22:40)
[2019-02-09] MEDS: ATORVASTATIN CA 10 MG TABLET (FP) PO SCH (22:40)
[2019-02-10] MEDS: LACTATED RINGERS SOLUTION 1,000 ML IV SCH ×2 (01:59→17:16)
[2019-02-10] MEDS: CYCLOBENZAPRINE HCL 10 MG TABLET (FP) PO SCH ×3 (06:28→22:32)
[2019-02-10 09:00] LABS: INR 1.18 (0.83-1.09); PROTHROMBIN TIME (PATIENT) 13.9 SEC (9.7-13.0)
[2019-02-10 09:02] LABS: ACTIVATED PTT 34.4 SECONDS (25.2-36.5)
[2019-02-10 09:03] LABS: BASO % 0.5 % (0-2.0); HEMATOCRIT 35.8 % (35.4-49); HEMOGLOBIN 12.2 GM/dL (11.7-16.9); LYMPH % 19.3 % (8-40); MCH 29.5 pg (25.7-33.7); MCHC 34.1 g/dl (32.0-35.9); MEAN CELL VOLUME 86.6 fl (80-96); MEAN PLT VOLUME 7.7 fl (7.5-11.1); MONO % 8.1 % (3.8-10.2); NEUT % 71.1 % (42.8-82.8); PLATELET COUNT 311 K/MM3 (134-434); RBC 4.14 M/mm3 (4.00-5.60); WHITE BLOOD COUNT 9.9 K/mm3 (4.0-10.0)
[2019-02-10 09:22] LABS: ALBUMIN 3.1 g/dl (3.4-5.0); BILIRUBIN,TOTAL 0.6 mg/dL (0.2-1); BLOOD UREA NITROGEN 13.4 mg/dL (7-18); CALCIUM 8.9 mg/dL (8.5-10.1); CREATININE 0.8 mg/dL (0.55-1.3); MAGNESIUM 2.3 mg/dL (1.8-2.4); PHOSPHOROUS 3.7 mg/dL (2.5-4.9); POTASSIUM 4.2 mmol/L (3.5-5.1); TOT PROT 6.4 g/dl (6.4-8.2)
[2019-02-10] MEDS ORDERED: PT OWN MED DRAWER 7, Y5N ONE ×2 (09:58→21:00)
[2019-02-10] MEDS ORDERED: VANCOMYCIN 1 GRAM (PRE-DOCKED) 1,000 MG/250 ML BAG IVPB ONE (10:00)
[2019-02-10] MEDS: TAMSULOSIN HCL 0.4 MG CAP PO SCH (10:10)
[2019-02-10] MEDS: CHOLECALCIFEROL (VIT D3) 1,000 UNIT (25 MCG) TABLET PO SCH (10:10)
[2019-02-10] MEDS: HEPARIN NA (PORCINE) 5,000 UNITS/ML 1ML VIAL SQ SCH ×2 (10:10→22:33)
[2019-02-10] MEDS: DOCUSATE SODIUM 100 MG CAPSULE (FP) PO PRN (10:10)
--- NOTE | 2019-02-10 10:19 | PN ---
Progress Note (short form) - Note Progress Note: ID consult dictated patient interviewed and examined chart reviewed he is s/p lumbar surgery (decompression) at [facility] on 01/30, discharged on 01/31 on levaquin, on Saturday 02/03 he started having clear drainage from the wound, he was seen in ED at [place] and started cephelexin 500 qid on 02/05 which he reports he has been taking he stopped the levaquin (called the pharmacy) no fevers, headache yesterday, none today per Dr Meade's note, recent wound culture is negative currently wound has no drainage or erythema he is awaiting MRI of the back imp/reccd wound drainage s/p lumbar laminectomy- postop fluid collection on lumbar ct scan unclear if he has infection but he has been on antibiotics as outpt, ?csf leak vancomycin and levaquin were started last night after cultures were taken awaiting MRI esr/crp in am (to trend) would f/u cultures, continue antibiotics for now will d/w Dr Meade penicillin allergy (rash)
--- NOTE | 2019-02-10 11:22 | EKG ---
Test Reason : Blood Pressure : / mmHG Vent. Rate : 071 BPM Atrial Rate : 071 BPM P-R Int : 172 ms QRS Dur : 102 ms QT Int : 404 ms P-R-T Axes : 046 -28 041 degrees QTc Int : 439 ms NORMAL SINUS RHYTHM INCOMPLETE RIGHT BUNDLE BRANCH BLOCK INFERIOR INFARCT (CITED ON OR BEFORE 12-JAN-2005) ABNORMAL ECG WHEN COMPARED WITH ECG OF 09-FEB-2019 16:00, NO SIGNIFICANT CHANGE WAS FOUND Confirmed by TANJA TURCIOS, KATERYNA ([id number]) on 02/10/2019 11:22:10 AM Referred By: Ashwini SORENSON Confirmed By:KATERYNA AGRAWAL MD
[2019-02-10] MEDS: FINASTERIDE 5 MG TABLET (FP) PO SCH (11:24)
--- NOTE | 2019-02-10 11:40 | EKG ---
Test Reason : Blood Pressure : / mmHG Vent. Rate : 082 BPM Atrial Rate : 082 BPM P-R Int : 156 ms QRS Dur : 084 ms QT Int : 390 ms P-R-T Axes : 032 -29 031 degrees QTc Int : 455 ms NORMAL SINUS RHYTHM INFERIOR INFARCT (CITED ON OR BEFORE 12-JAN-2005) ABNORMAL ECG WHEN COMPARED WITH ECG OF 07-NOV-2017 10:41, NO SIGNIFICANT CHANGE WAS FOUND Confirmed by TANJA TURCIOS, KATERYNA ([id number]) on 02/10/2019 11:40:07 AM Referred By: Confirmed By:KATERYNA AGRAWAL MD
--- NOTE | 2019-02-10 12:52 | CONS ---
DATE OF CONSULTATION: DATE OF DICTATION: 02/10/2019 REQUESTED BY: Isauro Meade MD This is a 54-year-old man who is status post recent lumbar decompression on January 30 at [facility]. He was discharged on the on Levaquin. He reports on Monday he started having some clear drainage from the site. He then went to the [place] ER, where he was prescribed cephalexin. I called the [facility] to confirm the antibiotics, which he has been taking 500 q.i.d. since the . He has stopped the Levaquin. He has never had any fever or chills, but he has continued to have clear drainage. He came yesterday to the emergency room for further evaluation per his neurosurgeon. He was given vancomycin and Levaquin, apparently after wound culture was obtained. He had blood cultures drawn as well. In the emergency room, he had a lumbar spine CT of his back that is notable that he is status post left laminectomy at L3, left and right laminectomy at L4. He has postoperative soft tissue changes and swelling. There is a superficial collection from L1 down to L4, 8.8 cm x 3.3 cm. He is now scheduled for an MRI of his back. He has had no fevers or chills. He otherwise feels well. He had an original surgery, he reports, in June of this year, after which he again developed pain and sciatica in his right leg. He reports those symptoms are now relieved. His past medical history is notable for hyperlipidemia, BPH, chronic low back pain. Surgical history is notable for he had a laminectomy, diverticulitis, status post bowel resection. SOCIAL HISTORY: He smokes. There is no history of any alcohol or substance use. He lives with his spouse. He has been on Workmen's comp for 11 months due to a back injury. He works in a [employer]. He is allergic to PIPERACILLIN TAZOBACTAM, which gives him a rash, and BEE STINGS. He has tolerated the Keflex without any difficulty. His medications at home include vitamin D, Proscar, Flomax, cyclobenzaprine, oxycodone, and pravastatin. His PMD is Dr. Kessler. Family history is notable for the fact his father had history of heart disease, mother is from a CVA. He has a brother who is from a drug overdose, and a sister who is alive and well. Review of systems is notable for hearing loss. He has no nausea, vomiting, diarrhea, dysuria, fevers, chills. In fact, he reports that he pain in his leg has improved. He uses a cane to ambulate. PHYSICAL EXAMINATION: General: He is awake and alert. Vital Signs: Temperature is 98.2. Pulse 74. Blood pressure 105/75. Respiratory rate is 20. His weight is 90 kg. HEENT: Normocephalic. His eyes are anicteric. Neck: Supple. Lungs: Clear to auscultation. Heart: Regular rate and rhythm. Abdomen: Soft, nontender. Extremities: Without edema. Back: Incision is clean and dry. There is no erythema, and currently on the dressing there is no drainage. Blood and wound cultures are all pending, including the Gram stain. CAT scan findings are as reported. He has a postoperative fluid collection. In summary, this is a 54-year-old man admitted with wound drainage, status post lumbar laminectomy. He has what looks like a postoperative fluid collection on lumbar CT scan. Unclear if he has infection. He is now on antibiotics as an outpatient. Vancomycin and Levaquin were started last night after cultures were taken. He is awaiting MRI. I would get a sedimentation rate and CRP to trend. Would follow up cultures, continue antibiotics for now. Will discuss with Dr. Meade. Number 2, history of PENICILLIN allergy manifested as rash. Further recommendations to follow. Shanice [id number]
--- NOTE | 2019-02-10 17:01 | PN ---
Physical Exam: SUBJECTIVE: Patient seen and examined. He has no complaints. OBJECTIVE: Vital Signs Period Temp Pulse Resp BP Sys/Vincent Pulse Ox Last 24 Hr 97.8 F-98.9 F 72-86 16-20 105-149/61-89 98-99 GENERAL: The patient is awake, alert, and fully oriented, in no acute distress. LUNGS: Breath sounds equal, clear to auscultation bilaterally, no wheezes, no crackles, no accessory muscle use. HEART: Regular rate and rhythm, S1, S2 without murmur, rub or gallop. ABDOMEN: Soft, nontender, nondistended, normoactive bowel sounds, no guarding, no rebound, no hepatosplenomegaly, no masses. EXTREMITIES: 2+ pulses, warm, well-perfused, no edema. Laboratory Results - last 24 hr 02/10/19 02/10/19 02/10/19 07:20 07:20 07:20 WBC 9.9 RBC 4.14 Hgb 12.2 Hct 35.8 MCV 86.6 MCH 29.5 MCHC 34.1 RDW 14.0 Plt Count 311 MPV 7.7 Absolute Neuts (auto) 7.0 Neutrophils % 71.1 Lymphocytes % 19.3 Monocytes % 8.1 Eosinophils % 1.0 Basophils % 0.5 Nucleated RBC % 0 PT with INR 13.90 H INR 1.18 H PTT (Actin FS) 34.4 Sodium 139 Potassium 4.2 Chloride 107 Carbon Dioxide 27 Anion Gap 5 L BUN 13.4 Creatinine 0.8 Est GFR (CKD-EPI)AfAm 115.74 Est GFR (CKD-EPI)NonAf 99.86 Random Glucose 87 Calcium 8.9 Phosphorus 3.7 Magnesium 2.3 Total Bilirubin 0.6 AST 10 L ALT 35 Alkaline Phosphatase 83 Total Protein 6.4 Albumin 3.1 L TSH 1.35 Active Medications Generic Name Dose Route Start Last Admin Trade Name Freq PRN Reason Stop Dose Admin Acetaminophen 650 mg 02/09/19 17:09 02/09/19 19:01 Tylenol - PO 650 mg Q4H PRN Administration PAIN LEVEL 4 - 6 Atorvastatin Calcium 10 mg 02/09/19 22:00 02/09/19 22:40 Lipitor - PO 10 mg HS SANDRA Administration Cholecalciferol 5,000 unit 02/10/19 10:00 02/10/19 10:10 Vitamin D3 - PO 5,000 unit DAILY SANDRA Administration Cyclobenzaprine HCl 10 mg 02/09/19 22:00 02/10/19 14:53 Flexeril - PO 10 mg TID SANDRA Administration Docusate Sodium 100 mg 02/09/19 17:09 02/10/19 10:10 Colace - PO 100 mg Q8H PRN Administration CONSTIPATION Finasteride 5 mg 02/10/19 10:00 02/10/19 11:24 Proscar - PO 5 mg DAILY SANDRA Administration Heparin Sodium (Porcine) 5,000 unit 02/09/19 22:00 02/10/19 10:10 Heparin - SQ 5,000 unit BID SANDRA Administration Lactated Ringer's 1,000 mls @ 42 mls/hr 02/09/19 17:15 02/10/19 01:59 Lactated Ringers Solution IV 42 mls/hr ASDIR SANDRA Administration Levofloxacin 500 mg in 100 mls @ 100 mls/hr 02/09/19 18:30 02/10/19 10:10 Levaquin 500 Mg Premixed Ivpb - IVPB 100 mls/hr DAILY SANDRA Administration Vancomycin HCl 1,250 mg/ 250 mls @ 166.667 mls/hr 02/10/19 22:00 Dextrose IVPB Q12H SANDRA Protocol Oxycodone HCl 5 mg 02/09/19 17:09 Roxicodone - PO Q6H PRN PAIN LEVEL 7 - 10 Senna 2 tab 02/09/19 17:09 Senna - PO HS PRN CONSTIPATION Tamsulosin HCl 0.4 mg 02/10/19 08:30 02/10/19 10:10 Flomax - PO 0.4 mg DAILY@0830 SANDRA Administration ASSESSMENT/PLAN: This is a 54 year old man with a history of hyperlipidemia, BPH, diverticulitis , chronic low back pain secondary to lumbar herniated discs, s/p lumbar surgery 10 days ago who presented to the ED with increasing drainage from the surgical incision site. 1. Post-operative fluid collection - Continue empiric Levaquin, vancomycin - Follow-up wound culture - MRI of L-spine pending 2. Lumbar herniated discs - s/p left L2-3 and L3-4, right L3-4, L4-5 decompression 10 days ago - Continue Flexeril, oxycodone as needed 3. BPH - Continue Flomax, Proscar 4. Hyperlipidemia - Continue Lipitor Visit type - Emergency Visit Emergency Visit: Yes ED Registration Date: 02/09/19 Care time: The patient presented to the Emergency Department on the above date and was hospitalized for further evaluation of their emergent condition. - New Patient This patient is new to me today: Yes Date on this admission: 02/10/19 - Critical Care Critical Care patient: No - Discharge Referral Referred to [facility] Med P.C.: No
[2019-02-10] MEDS: oxyCODONE HCL 5 MG TABLET PO PRN (17:17)
--- NOTE | 2019-02-10 19:18 | PN ---
Progress Note (short form) - Note Progress Note: NEUROSURGERY Pt s/p L L2-3 and L3-4, R L3-4, L4-5 decompression 10 days ago Increasing serosangrenous drainage over the past 4-5 days or so LBP; no fever Been up and about all day Prior wound swab gram stain and culture negative from 3 days ago T 98.6, VSS PE; CV- RRR; Lungs- CTA; Abd- benign; Ext- no sign of DVT CN- intact; Motor- 4+-5 B LE; Sensation- intact Wound- small amount of serosangrenous drainage (quarter to half dollar size on bottom of gauze), cleaned with betadine and re-dressed Wound drainage gram stain and culture pending Blood culture pending WBC 9.9 CT LS spine- posterior L2-4 subcutaneous seroma; laminectomy defects LS MRI- If persistent drainage, fever, positive current cultures would recommend debridement, drain placement, and iv abx If incision dry without drainage, no fever, and wound culture negative would consider leaving good enough alone Pros and cons d/w pt and family On iv abx D/w ID earlier NPO after MN just in case
[2019-02-10] MEDS: ATORVASTATIN CA 10 MG TABLET (FP) PO SCH (22:32)
[2019-02-10] MEDS: VANCOMYCIN 1,250 MG in DEXTROSE 5%-WATER - 250 ML IVPB SCH (22:33)
[2019-02-11] MEDS: CYCLOBENZAPRINE HCL 10 MG TABLET (FP) PO SCH ×3 (06:20→21:13)
--- NOTE | 2019-02-11 07:46 | PN ---
Progress Note (short form) - Note Progress Note: NEUROSURGERY Pt s/p L L2-3 and L3-4, R L3-4, L4-5 decompression 10 days ago Increasing serosangrenous drainage over the past 4-5 days or so but stopped overnight completely LBP; no fever No H/a, n/v Been up and about Prior wound swab gram stain and culture negative from 3 days ago Tmax 98.6, VSS PE; CV- RRR; Lungs- CTA; Abd- benign; Ext- no sign of DVT CN- intact; Motor- 4+-5 B LE; Sensation- intact Wound- No drainage at all, incision cleaned with betadine and re-dressed ER Wound drainage gram stain negative and culture negative to date Blood culture pending WBC 9.9 CT LS spine- posterior L2-4 subcutaneous seroma; laminectomy defects LS MRI- paraspinal cubcu fluid collection; R L4-5 epidural/parspinal fluid; postop changes L2-3 and B L3-4 As there is no drainage would percutaneously drain fluid for decompression and cultures without open incision Pt was not ill appearing ever Pros and cons d/w pt and family Cont iv abx for 24 hours more ESR/CRP pending D/w ID yesterday and today OR for aspiration under fluoro Pt concurs with middle of the road approach/plan
[2019-02-11] MEDS ORDERED: BUPIVACAINE HCL/PF 0.5% (5 MG/ML) 30 ML VIAL IJ ONE (07:53)
[2019-02-11] MEDS ORDERED: BACITRACIN 15 GM TUBE TOPICAL OINTMENT ONE (07:53)
[2019-02-11] MEDS ORDERED: THROMBIN (BOVINE) 5,000 UNIT VIAL TP ONE (07:54)
[2019-02-11] MEDS ORDERED: LIDOCAINE HCL/PF 2% SDV 5ML VIAL ONE (08:12)
[2019-02-11] MEDS ORDERED: fentaNYL CITRATE 250 MCG/5 ML VIAL ONE (08:12)
[2019-02-11] MEDS ORDERED: ROCURONIUM BROMIDE 50 MG/5 ML SYRINGE ONE (08:12)
[2019-02-11] MEDS ORDERED: PROPOFOL 20 ML ONE (08:12)
[2019-02-11] MEDS ORDERED: MIDAZOLAM HCL 2 MG/2 ML SINGLE DOSE VIAL ONE (08:12)
[2019-02-11] MEDS ORDERED: LIDOCAINE HCL 1%, 10 MG/ML (20ML VIAL) ONE (09:16)
[2019-02-11] MEDS ORDERED: LIDOCAINE HCL 1%, 10 MG/ML (20ML VIAL) PNB ONE ×2 (09:22)
--- NOTE | 2019-02-11 09:49 | OP ---
Operative Note - Note: Operative Date: 02/11/19 Pre-Operative Diagnosis: Postop wound drainage Operation: Aspiration of fluid collecion; fluroscopy Findings: Serosangrenous fluid collection- small amount Post-Operative Diagnosis: Same as Pre-op Surgeon: Isauro Meade Anesthesiologist/FOLLOW UP REP: Carla Schneider Specimens Removed: fluid 1-2 cc Operative Report Dictated: Yes
--- NOTE | 2019-02-11 09:51 | PN ---
Physical Exam: SUBJECTIVE: Patient seen and examined at bedside. Pt went for I&D procedure today. OBJECTIVE: Vital Signs Period Temp Pulse Resp BP Sys/Vincent Pulse Ox Last 24 Hr 98.1 F-98.6 F 72-85 20-20 106-121/50-73 99-100 GEN: comfortable sitting up in bed HEENT: NCAT, PERRL, EOMI Neck: supple, no jvd Cardio: rrr, normal s1s2, no mrg noted Pulm: cta b/l Abd: soft, nontender. Back with wound dressing cdi on L-spine Ext: no edema Laboratory Results - last 24 hr 02/11/19 02/11/19 07:10 07:10 ESR 68 H C-Reactive Protein 1.8 H Active Medications Generic Name Dose Route Start Last Admin Trade Name Freq PRN Reason Stop Dose Admin Acetaminophen 650 mg 02/09/19 17:09 02/09/19 19:01 Tylenol - PO 650 mg Q4H PRN Administration PAIN LEVEL 4 - 6 Atorvastatin Calcium 10 mg 02/09/19 22:00 02/10/19 22:32 Lipitor - PO 10 mg HS SANDRA Administration Cholecalciferol 5,000 unit 02/10/19 10:00 02/10/19 10:10 Vitamin D3 - PO 5,000 unit DAILY SANDRA Administration Cyclobenzaprine HCl 10 mg 02/09/19 22:00 02/11/19 06:20 Flexeril - PO 10 mg TID SANDRA Administration Docusate Sodium 100 mg 02/09/19 17:09 02/10/19 10:10 Colace - PO 100 mg Q8H PRN Administration CONSTIPATION Finasteride 5 mg 02/10/19 10:00 02/10/19 11:24 Proscar - PO 5 mg DAILY SANDRA Administration Heparin Sodium (Porcine) 5,000 unit 02/09/19 22:00 02/10/19 22:33 Heparin - SQ Not Given BID SANDRA Lactated Ringer's 1,000 mls @ 42 mls/hr 02/09/19 17:15 02/10/19 17:16 Lactated Ringers Solution IV 42 mls/hr ASDIR SANDRA Administration Levofloxacin 500 mg in 100 mls @ 100 mls/hr 02/09/19 18:30 02/10/19 10:10 Levaquin 500 Mg Premixed Ivpb - IVPB 100 mls/hr DAILY SANDRA Administration Vancomycin HCl 1,250 mg/ 250 mls @ 166.667 mls/hr 02/10/19 22:00 02/10/19 22: 33 Dextrose IVPB 166.667 mls/hr Q12H SANDRA Administration Protocol Oxycodone HCl 5 mg 02/09/19 17:09 02/10/19 17:17 Roxicodone - PO 5 mg Q6H PRN Administration PAIN LEVEL 7 - 10 Senna 2 tab 02/09/19 17:09 Senna - PO HS PRN CONSTIPATION Tamsulosin HCl 0.4 mg 02/10/19 08:30 02/10/19 10:10 Flomax - PO 0.4 mg DAILY@0830 [facility] Administration Active Medications Acetaminophen (Tylenol -) 650 mg PO Q4H PRN PRN Reason: PAIN LEVEL 4 - 6 Last Admin: 02/09/19 19:01 Dose: 650 mg Atorvastatin Calcium (Lipitor -) 10 mg PO HS [facility] Last Admin: 02/10/19 22:32 Dose: 10 mg Cholecalciferol (Vitamin D3 -) 5,000 unit PO DAILY [facility] Last Admin: 02/10/19 10:10 Dose: 5,000 unit Cyclobenzaprine HCl (Flexeril -) 10 mg PO TID [facility] Last Admin: 02/11/19 06:20 Dose: 10 mg Docusate Sodium (Colace -) 100 mg PO Q8H PRN PRN Reason: CONSTIPATION Last Admin: 02/10/19 10:10 Dose: 100 mg Finasteride (Proscar -) 5 mg PO DAILY [facility] Last Admin: 02/10/19 11:24 Dose: 5 mg Heparin Sodium (Porcine) (Heparin -) 5,000 unit SQ BID [facility] Last Admin: 02/10/19 22:33 Dose: Not Given Lactated Ringer's (Lactated Ringers Solution) 1,000 mls @ 42 mls/hr IV ASDIR [facility] Last Admin: 02/10/19 17:16 Dose: 42 mls/hr Levofloxacin (Levaquin 500 Mg Premixed Ivpb -) 500 mg in 100 mls @ 100 mls/hr IVPB DAILY [facility] Last Admin: 02/10/19 10:10 Dose: 100 mls/hr Vancomycin HCl 1,250 mg/ (Dextrose) 250 mls @ 166.667 mls/hr IVPB Q12H SANDRA; Protocol Last Admin: 02/10/19 22:33 Dose: 166.667 mls/hr Oxycodone HCl (Roxicodone -) 5 mg PO Q6H PRN PRN Reason: PAIN LEVEL 7 - 10 Last Admin: 02/10/19 17:17 Dose: 5 mg Senna (Senna -) 2 tab PO HS PRN PRN Reason: CONSTIPATION Tamsulosin HCl (Flomax -) 0.4 mg PO DAILY@0830 SANDRA Last Admin: 02/10/19 10:10 Dose: 0.4 mg ASSESSMENT/PLAN: This is a 54 year old man with a history of hyperlipidemia, BPH, diverticulitis , chronic low back pain secondary to lumbar herniated discs, s/p lumbar surgery 10 days ago who presented to the ED with increasing drainage from the surgical incision site. # Post-operative fluid collection - Wound culture negative. New cultures sent - MRI of L-spine showed enhancing paraspinal soft tissues containing fluid collections - s/p aspiration of fluid collection in OR today - Follow up fluid culture from OR - Continue empiric Levaquin, vancomycin for now. ID on board # Lumbar herniated discs - s/p left L2-3 and L3-4, right L3-4, L4-5 decompression 10 days ago - Continue Flexeril, oxycodone as needed #BPH - Continue Flomax, Proscar #Hyperlipidemia - Continue Lipitor Visit type - Emergency Visit Emergency Visit: No - New Patient This patient is new to me today: Yes Date on this admission: 02/11/19 - Critical Care Critical Care patient: No ATTENDING PHYSICIAN STATEMENT I saw and evaluated the patient. I reviewed the resident's note and discussed the case with the resident. I agree with the resident's findings and plan as documented. SUBJECTIVE: OBJECTIVE: ASSESSMENT AND PLAN:
[2019-02-11] MEDS: TAMSULOSIN HCL 0.4 MG CAP PO SCH (10:42)
[2019-02-11] MEDS: CHOLECALCIFEROL (VIT D3) 1,000 UNIT (25 MCG) TABLET PO SCH (10:44)
[2019-02-11] MEDS: HEPARIN NA (PORCINE) 5,000 UNITS/ML 1ML VIAL SQ SCH ×2 (10:45→21:13)
[2019-02-11] MEDS ORDERED: PT OWN MED DRAWER 7, Y5N ONE ×2 (10:52→20:29)
[2019-02-11] MEDS: SODIUM CHLORIDE 1,000 ML IV SCH (10:54)
[2019-02-11] MEDS: FINASTERIDE 5 MG TABLET (FP) PO SCH (10:55)
--- NOTE | 2019-02-11 11:02 | PN ---
Progress Note (short form) - Note Progress Note: NEUROSURGERY Postop Back on the floor, seen in PACU earlier Pt s/p drainage of fluid No H/a, n/v Tmax 98.6, VSS PE; CV- RRR; Lungs- CTA; Abd- benign; Ext- no sign of DVT CN- intact; Motor- 4+-5 B LE; Sensation- intact Wound- No drainage at all, dressing intact ER Wound drainage gram stain negative and culture negative to date Blood culture pending New gram stain and culture from OR sent Cont iv abx for 24 hours more D/w ID earlier
[2019-02-11] MEDS: VANCOMYCIN 1,250 MG in DEXTROSE 5%-WATER - 250 ML IVPB SCH ×2 (11:19→21:13)
--- NOTE | 2019-02-11 13:33 | OP ---
DATE OF OPERATION: 02/11/2019 PREOPERATIVE DIAGNOSES: 1. Postoperative wound drainage. 2. History of L2-3, L3-4, and L4-5 laminectomies. POSTOPERATIVE DIAGNOSES: 1. Postoperative wound drainage. 2. History of L2-3, L3-4, and L4-5 laminectomies. ATTENDING SURGEON: Isauro Meade MD PROCEDURES: 1. Aspiration of percutaneous fluid collection. 2. Intraoperative fluoroscopy. FINDINGS: Small serosanguineous fluid collection. INDICATIONS: Patient is a 54-year-old male with history of prior L2-3 laminectomy. He underwent re-do left L2-3, bilateral L3-4, and right L4-5 laminectomies for decompression and his spinal stenosis. Approximately 10 days earlier, he developed strange drainage several days ago, and the initial swab culture was negative. He never had any fever since, but the drainage actually increased over the weekend. He was admitted for possible wound exploration overnight; however, the wound had remained completely dry. MRI demonstrated paraspinal epidural fluid collection with slight enhancement, which was consistent with postoperative changes. CT scan demonstrated similar findings. For further diagnosis and treatment, he is consented for aspiration of fluid. Initially, he was consented for exploration of the wound, which will not be carried out since the drainage has stopped. Risks of procedure include, but are not limited to, bleeding, infection, CSF leak, and neurological injury. The patient understands the indication for the procedure, procedure in detail, risks, and benefits, and alternative for treatment of his condition and wished to proceed with aspiration/drainage. No guarantees are given for a favorable outcome. PROCEDURE IN DETAIL: After the patient was taken to the operating room, he was placed on IV sedation. Was turned in prone with headrest and arms were placed with foams and then arm board. Posterior lumbar region was cleaned with alcohol and prepped with Betadine. A fluoroscopic image was obtained in the AP plane to ascertain the approach to be from L3-L5. A 22-gauge 5 mL 1% Xylocaine was used to raise the skin wheal on the left side. A 22-gauge spinal needle was inserted and only saw a small amount of the fluid was removed, approximately a couple of mL. Attention was made to aspirate more fluid down lower at the L4-5 level, but there was no significant fluid collection. The fluid was sent for Gram stain and culture. The position of the aspiration was verified by fluoroscopic imaging. The needle was withdrawn, and a sterile bandage was applied. Patient tolerated the procedure well and was turned back in the supine position. He was moving bilateral upper and lower extremities well. The dressing remained dry in the recovery room and approximately an hour and a half after the procedure. The patient was updated as to the intraoperative finding. The patient had remained on IV antibiotic perioperatively per Infectious Disease. The OR time-out procedure was followed. Shanice SÁNCHEZ/[id number]
--- NOTE | 2019-02-11 17:31 | PN ---
Progress Note (short form) - Note Progress Note: d/w dr tejada patient feels well had aspiration of the fluid colleciton this am Vital Signs Period Temp Pulse Resp BP Sys/Vincent Pulse Ox Last 24 Hr 98.0 F-98.6 F 65-77 16-20 106-128/50-70 93-100 CBC, BMP 02/10/19 07:20 02/10/19 07:20 Microbiology 02/09/19 15:30 Blood - Peripheral Venous Blood Culture - Preliminary NO GROWTH OBTAINED AFTER 48 HOURS, INCUBATION TO CONTINUE FOR 3 DAYS. 02/09/19 15:30 Blood - Peripheral Venous Blood Culture - Preliminary NO GROWTH OBTAINED AFTER 48 HOURS, INCUBATION TO CONTINUE FOR 3 DAYS. 02/11/19 10:00 Body Fluid - Other Gram Stain - Final 02/10/19 07:25 Blood - Peripheral Venous Blood Culture - Preliminary NO GROWTH OBTAINED AFTER 24 HOURS, INCUBATION TO CONTINUE FOR 4 DAYS. 02/10/19 07:25 Blood - Peripheral Venous Blood Culture - Preliminary NO GROWTH OBTAINED AFTER 24 HOURS, INCUBATION TO CONTINUE FOR 4 DAYS. 02/09/19 15:30 Back Gram Stain - Final 02/09/19 15:30 Back Wound Culture - Preliminary No growth. esr 68, crp 1.8 imp/reccd wound drainage s/p lumbar laminectomy- postop fluid collection on lumbar ct scan d/w dr Tejada, to f/u cultures and gram stain, if negative to d/c antiiboitcs and observe vanco trough in am penicillin allergy (rash)
--- NOTE | 2019-02-11 17:32 | PN ---
Teaching Attending Note Name of Resident: Baljinder Ca ATTENDING PHYSICIAN STATEMENT I saw and evaluated the patient. I reviewed the resident's note and discussed the case with the resident. I agree with the resident's findings and plan as documented. SUBJECTIVE: Patient has no complaints. He wants to go home. OBJECTIVE: Vital Signs Period Temp Pulse Resp BP Sys/Vincent Pulse Ox Last 24 Hr 98.0 F-98.6 F 65-77 16-20 106-128/50-70 93-100 HEART: S1S2, RRR LUNGS: Clear ABDOMEN: Soft, non-tender, non-distended, normal BS EXTREMITIES: No edema Laboratory Results - last 24 hr 02/11/19 02/11/19 07:10 07:10 ESR 68 H C-Reactive Protein 1.8 H Current Medications Generic Name Dose Route Start Last Admin Trade Name Freq PRN Reason Stop Dose Admin Acetaminophen 650 mg 02/09/19 17:09 02/09/19 19:01 Tylenol - PO 650 mg Q4H PRN Administration PAIN LEVEL 4 - 6 Atorvastatin Calcium 10 mg 02/09/19 22:00 02/10/19 22:32 Lipitor - PO 10 mg HS SANDRA Administration Cholecalciferol 5,000 unit 02/10/19 10:00 02/11/19 10:44 Vitamin D3 - PO 5,000 unit DAILY SANDRA Administration Cyclobenzaprine HCl 10 mg 02/09/19 22:00 02/11/19 13:58 Flexeril - PO 10 mg TID SANDRA Administration Docusate Sodium 100 mg 02/09/19 17:09 02/10/19 10:10 Colace - PO 100 mg Q8H PRN Administration CONSTIPATION Finasteride 5 mg 02/10/19 10:00 02/11/19 10:55 Proscar - PO 5 mg DAILY SANDRA Administration Heparin Sodium (Porcine) 5,000 unit 02/09/19 22:00 02/11/19 10:45 Heparin - SQ 5,000 unit BID SANDRA Administration Lactated Ringer's 1,000 mls @ 42 mls/hr 02/09/19 17:15 02/10/19 17:16 Lactated Ringers Solution IV 42 mls/hr ASDIR SANDRA Administration Levofloxacin 500 mg in 100 mls @ 100 mls/hr 02/09/19 18:30 02/11/19 10:44 Levaquin 500 Mg Premixed Ivpb - IVPB 100 mls/hr DAILY SANDRA Administration Vancomycin HCl 1,250 mg/ 250 mls @ 166.667 mls/hr 02/10/19 22:00 02/11/19 11: 19 Dextrose IVPB 166.667 mls/hr Q12H SANDRA Administration Protocol Sodium Chloride 1,000 mls @ 75 mls/hr 02/11/19 10:00 02/11/19 10:54 Normal Saline - IV 75 mls/hr ASDIR SANDRA Administration Oxycodone HCl 5 mg 02/09/19 17:09 02/10/19 17:17 Roxicodone - PO 5 mg Q6H PRN Administration PAIN LEVEL 7 - 10 Senna 2 tab 02/09/19 17:09 Senna - PO HS PRN CONSTIPATION Tamsulosin HCl 0.4 mg 02/10/19 08:30 02/11/19 10:42 Flomax - PO 0.4 mg DAILY@0830 SANDRA Administration ASSESSMENT AND PLAN: This is a 54 year old man with a history of hyperlipidemia, BPH, diverticulitis , chronic low back pain secondary to lumbar herniated discs, s/p lumbar surgery 10 days ago who presented to the ED with increasing drainage from the surgical incision site. 1. Post-operative fluid collection - Wound culture negative - MRI of L-spine showed enhancing paraspinal soft tissues containing fluid collections - s/p aspiration of fluid collection in OR today - Follow up fluid culture from OR - Continue empiric Levaquin, vancomycin for now 2. Lumbar herniated discs - s/p left L2-3 and L3-4, right L3-4, L4-5 decompression 10 days ago - Continue Flexeril, oxycodone as needed 3. BPH - Continue Flomax, Proscar 4. Hyperlipidemia - Continue Lipitor
[2019-02-11] MEDS: ATORVASTATIN CA 10 MG TABLET (FP) PO SCH (21:13)
[2019-02-12] MEDS: CYCLOBENZAPRINE HCL 10 MG TABLET (FP) PO SCH ×2 (06:41→13:08)
[2019-02-12 06:56] LABS: BASO % 0.6 % (0-2.0); EOS % 1.2 % (0-4.5); HEMATOCRIT 36.4 % (35.4-49); HEMOGLOBIN 12.2 GM/dL (11.7-16.9); LYMPH % 21.3 % (8-40); MCHC 33.4 g/dl (32.0-35.9); MEAN PLT VOLUME 7.8 fl (7.5-11.1); MONO % 7.3 % (3.8-10.2); NEUT % 69.6 % (42.8-82.8); PLATELET COUNT 289 K/MM3 (134-434); RBC 4.19 M/mm3 (4.00-5.60); RDW 14.1 % (11.9-15.9); WHITE BLOOD COUNT 9.3 K/mm3 (4.0-10.0)
--- NOTE | 2019-02-12 07:43 | PN ---
Progress Note (short form) - Note Progress Note: NEUROSURGERY s/p fluid aspiration Back on the floor No H/a, n/v Tmax 98.6, VSS PE; CV- RRR; Lungs- CTA; Abd- benign; Ext- no sign of DVT CN- intact; Motor- 4+-5 B LE; Sensation- intact CRP 1.8, ESR 68 Labs pending this am Wound- No drainage at all, dressing intact ER Wound drainage gram stain negative and culture negative Intraop fluid- Mostly RBC, no organism; culture pending Blood culture negative to date Completed iv abx 48 hours + D/w ID earlier OK to discharge home today
--- NOTE | 2019-02-12 07:50 | PN ---
Physical Exam: SUBJECTIVE: Patient seen and examined OBJECTIVE: Vital Signs Period Temp Pulse Resp BP Sys/Vincent Pulse Ox Last 24 Hr 97.9 F-98.6 F 64-78 16-20 115-128/64-72 93-100 GENERAL: The patient is awake, alert, and fully oriented, in no acute distress. HEAD: Normal with no signs of trauma. EYES: PERRL, extraocular movements intact, sclera anicteric, conjunctiva clear. No ptosis. ENT: Ears normal, nares patent, oropharynx clear without exudates, moist mucous membranes. NECK: Trachea midline, full range of motion, supple. LUNGS: Breath sounds equal, clear to auscultation bilaterally, no wheezes, no crackles, no accessory muscle use. HEART: Regular rate and rhythm, S1, S2 without murmur, rub or gallop. ABDOMEN: Soft, nontender, nondistended, normoactive bowel sounds, no guarding, no rebound, no hepatosplenomegaly, no masses. EXTREMITIES: 2+ pulses, warm, well-perfused, no edema. NEUROLOGICAL: Cranial nerves II through XII grossly intact. Normal speech, gait not observed. PSYCH: Normal mood, normal affect. SKIN: Warm, dry, normal turgor, no rashes or lesions noted Laboratory Results - last 24 hr 02/11/19 02/11/19 07:10 07:10 ESR 68 H C-Reactive Protein 1.8 H Active Medications Generic Name Dose Route Start Last Admin Trade Name Freq PRN Reason Stop Dose Admin Acetaminophen 650 mg 02/09/19 17:09 02/09/19 19:01 Tylenol - PO 650 mg Q4H PRN Administration PAIN LEVEL 4 - 6 Atorvastatin Calcium 10 mg 02/09/19 22:00 02/11/19 21:13 Lipitor - PO 10 mg HS SANDRA Administration Cholecalciferol 5,000 unit 02/10/19 10:00 02/11/19 10:44 Vitamin D3 - PO 5,000 unit DAILY SANDRA Administration Cyclobenzaprine HCl 10 mg 02/09/19 22:00 02/12/19 06:41 Flexeril - PO 10 mg TID SANDRA Administration Docusate Sodium 100 mg 02/09/19 17:09 02/10/19 10:10 Colace - PO 100 mg Q8H PRN Administration CONSTIPATION Finasteride 5 mg 02/10/19 10:00 02/11/19 10:55 Proscar - PO 5 mg DAILY SANDRA Administration Heparin Sodium (Porcine) 5,000 unit 02/09/19 22:00 02/11/19 21:13 Heparin - SQ 5,000 unit BID SANDRA Administration Lactated Ringer's 1,000 mls @ 42 mls/hr 02/09/19 17:15 02/10/19 17:16 Lactated Ringers Solution IV 42 mls/hr ASDIR SANDRA Administration Levofloxacin 500 mg in 100 mls @ 100 mls/hr 02/09/19 18:30 02/11/19 10:44 Levaquin 500 Mg Premixed Ivpb - IVPB 100 mls/hr DAILY SANDRA Administration Vancomycin HCl 1,250 mg/ 250 mls @ 166.667 mls/hr 02/10/19 22:00 02/11/19 21: 13 Dextrose IVPB 166.667 mls/hr Q12H SANDRA Administration Protocol Sodium Chloride 1,000 mls @ 75 mls/hr 02/11/19 10:00 02/11/19 10:54 Normal Saline - IV 75 mls/hr ASDIR SANDRA Administration Oxycodone HCl 5 mg 02/09/19 17:09 02/10/19 17:17 Roxicodone - PO 5 mg Q6H PRN Administration PAIN LEVEL 7 - 10 Senna 2 tab 02/09/19 17:09 Senna - PO HS PRN CONSTIPATION Tamsulosin HCl 0.4 mg 02/10/19 08:30 02/11/19 10:42 Flomax - PO 0.4 mg DAILY@0830 [facility] Administration Active Medications Acetaminophen (Tylenol -) 650 mg PO Q4H PRN PRN Reason: PAIN LEVEL 4 - 6 Last Admin: 02/09/19 19:01 Dose: 650 mg Atorvastatin Calcium (Lipitor -) 10 mg PO HS [facility] Last Admin: 02/11/19 21:13 Dose: 10 mg Cholecalciferol (Vitamin D3 -) 5,000 unit PO DAILY [facility] Last Admin: 02/11/19 10:44 Dose: 5,000 unit Cyclobenzaprine HCl (Flexeril -) 10 mg PO TID [facility] Last Admin: 02/12/19 06:41 Dose: 10 mg Docusate Sodium (Colace -) 100 mg PO Q8H PRN PRN Reason: CONSTIPATION Last Admin: 02/10/19 10:10 Dose: 100 mg Finasteride (Proscar -) 5 mg PO DAILY [facility] Last Admin: 02/11/19 10:55 Dose: 5 mg Heparin Sodium (Porcine) (Heparin -) 5,000 unit SQ BID [facility] Last Admin: 02/11/19 21:13 Dose: 5,000 unit Lactated Ringer's (Lactated Ringers Solution) 1,000 mls @ 42 mls/hr IV ASDIR SANDRA Last Admin: 02/10/19 17:16 Dose: 42 mls/hr Levofloxacin (Levaquin 500 Mg Premixed Ivpb -) 500 mg in 100 mls @ 100 mls/hr IVPB DAILY [facility] Last Admin: 02/11/19 10:44 Dose: 100 mls/hr Vancomycin HCl 1,250 mg/ (Dextrose) 250 mls @ 166.667 mls/hr IVPB Q12H [facility]; Protocol Last Admin: 02/11/19 21:13 Dose: 166.667 mls/hr Sodium Chloride (Normal Saline -) 1,000 mls @ 75 mls/hr IV ASDIR [facility] Last Admin: 02/11/19 10:54 Dose: 75 mls/hr Oxycodone HCl (Roxicodone -) 5 mg PO Q6H PRN PRN Reason: PAIN LEVEL 7 - 10 Last Admin: 02/10/19 17:17 Dose: 5 mg Senna (Senna -) 2 tab PO HS PRN PRN Reason: CONSTIPATION Tamsulosin HCl (Flomax -) 0.4 mg PO DAILY@0830 [facility] Last Admin: 02/11/19 10:42 Dose: 0.4 mg ASSESSMENT/PLAN: ATTENDING PHYSICIAN STATEMENT I saw and evaluated the patient. I reviewed the resident's note and discussed the case with the resident. I agree with the resident's findings and plan as documented. SUBJECTIVE: OBJECTIVE: ASSESSMENT AND PLAN:
[2019-02-12 08:14] LABS: POTASSIUM 4.3 mmol/L (3.5-5.1)
[2019-02-12 08:37] LABS: ALBUMIN 2.9 g/dl (3.4-5.0); BILIRUBIN,TOTAL 0.7 mg/dL (0.2-1); BLOOD UREA NITROGEN 10.6 mg/dL (7-18); CALCIUM 9.1 mg/dL (8.5-10.1); CREATININE 0.8 mg/dL (0.55-1.3); TOT PROT 6.2 g/dl (6.4-8.2)
[2019-02-12] MEDS ORDERED: PT OWN MED DRAWER 7, Y5N ONE (10:23)
[2019-02-12] MEDS: CHOLECALCIFEROL (VIT D3) 1,000 UNIT (25 MCG) TABLET PO SCH (10:36)
[2019-02-12] MEDS: oxyCODONE HCL 5 MG TABLET PO PRN (10:36)
[2019-02-12] MEDS: DOCUSATE SODIUM 100 MG CAPSULE (FP) PO PRN (10:36)
[2019-02-12] MEDS: HEPARIN NA (PORCINE) 5,000 UNITS/ML 1ML VIAL SQ SCH (10:37)
[2019-02-12] MEDS: TAMSULOSIN HCL 0.4 MG CAP PO SCH (10:37)
[2019-02-12] MEDS: FINASTERIDE 5 MG TABLET (FP) PO SCH (10:37)
[2019-02-12] MEDS: SODIUM CHLORIDE 1,000 ML IV SCH (10:37)
[2019-02-12] MEDS: VANCOMYCIN 1,250 MG in DEXTROSE 5%-WATER - 250 ML IVPB SCH (11:37)
--- NOTE | 2019-02-12 12:08 | PN ---
Teaching Attending Note Name of Resident: Baljinder Ca ATTENDING PHYSICIAN STATEMENT I saw and evaluated the patient. I reviewed the resident's note and discussed the case with the resident. I agree with the resident's findings and plan as documented with exceptions below. SUBJECTIVE: Patient seen and examined. No complaints, ambulating, no fevers/chills, eager to go home. OBJECTIVE: Vital Signs Period Temp Pulse Resp BP Sys/Vincent Pulse Ox Last 24 Hr 97.9 F-98.4 F 64-78 18-20 115-121/64-72 Intake & Output 02/09/19 02/10/19 02/11/19 02/12/19 23:59 23:59 23:59 23:59 Intake Total 2200 1936 1000 Output Total 588 069 2495 Balance 1600 1486 -200 Weight 200 lb 200 lb General: sitting in bed in no acute distress chest: CTAB, no rales or wheezing Abdomen:Soft, NT, ND Extremities: no edema Back: clean surgical dressing, no discharge/erythema/tenderness noted Home Medications Medication Instructions Recorded Cholecalciferol (Vitamin D3) 5,000 unit PO DAILY 11/07/17 [Vitamin D3] Finasteride [Proscar] 5 mg PO DAILY 11/07/17 Tamsulosin HCl [Flomax] 0.4 mg PO DAILY 11/07/17 Cyclobenzaprine HCl 10 mg PO TID 02/09/19 Pravastatin Sodium 1 tab PO HS 02/09/19 Laboratory Results - last 24 hr 02/12/19 02/12/19 02/12/19 06:30 06:30 10:10 WBC 9.3 RBC 4.19 Hgb 12.2 Hct 36.4 MCV 87.0 MCH 29.0 MCHC 33.4 RDW 14.1 Plt Count 289 MPV 7.8 Absolute Neuts (auto) 6.4 Neutrophils % 69.6 Lymphocytes % 21.3 Monocytes % 7.3 Eosinophils % 1.2 Basophils % 0.6 Nucleated RBC % 0 Sodium 140 Potassium 4.3 Chloride 108 H Carbon Dioxide 24 Anion Gap 9 BUN 10.6 Creatinine 0.8 Est GFR (CKD-EPI)AfAm 115.74 Est GFR (CKD-EPI)NonAf 99.86 Random Glucose 91 Calcium 9.1 Total Bilirubin 0.7 AST 14 L ALT 31 Alkaline Phosphatase 83 Total Protein 6.2 L Albumin 2.9 L Vancomycin Pre-Dose 11.7 L Microbiology 08/24/19 15:30 Back Gram Stain - Final 02/09/19 15:30 Back Wound Culture - Final NO GROWTH OF AEROBIC ORGANISMS AFTER 48 HOURS INCUBATION 02/11/19 10:00 Body Fluid - Other Gram Stain - Final 02/11/19 10:00 Body Fluid - Other Body Fluid Culture - Preliminary NO AEROBIC GROWTH, 24 HRS 02/10/19 07:25 Blood - Peripheral Venous Blood Culture - Preliminary NO GROWTH OBTAINED AFTER 48 HOURS, INCUBATION TO CONTINUE FOR 3 DAYS. 02/10/19 07:25 Blood - Peripheral Venous Blood Culture - Preliminary NO GROWTH OBTAINED AFTER 48 HOURS, INCUBATION TO CONTINUE FOR 3 DAYS. 02/09/19 15:30 Blood - Peripheral Venous Blood Culture - Preliminary NO GROWTH OBTAINED AFTER 48 HOURS, INCUBATION TO CONTINUE FOR 3 DAYS. 02/09/19 15:30 Blood - Peripheral Venous Blood Culture - Preliminary NO GROWTH OBTAINED AFTER 48 HOURS, INCUBATION TO CONTINUE FOR 3 DAYS. ASSESSMENT AND PLAN: 54 year old man with a history of hyperlipidemia, BPH, diverticulitis, chronic low back pain secondary to lumbar herniated discs, s/p lumbar surgery 10 days ago who presented to the ED with increasing drainage from the surgical incision site. - Post-operative fluid collection - Lumbar herniated discs s/p left L2-3 and L3-4, right L3-4, L4-5 decompression 10 days ago -BPH -HLD Plan: Doing well, wound cx neg so far. Dc off abx per Dr. Meade and Dr. Sweeney Resume home medications. Outpatient follow up with Dr. Meade Discussed with patient and family at bedside in detail, all questions answered.
[2019-02-12 12:49] VITALS: BP 130/86; PULSE 82; TEMP 97.7
--- NOTE | 2019-02-12 14:36 | DS ---
Physical Exam: SUBJECTIVE: Patient seen and examined at bedside. OBJECTIVE: Vital Signs Period Temp Pulse Resp BP Sys/Vincent Pulse Ox Last 24 Hr 97.7 F-98.4 F 64-82 18-20 115-130/64-86 97 PHYSICAL EXAM GEN: comfortable sitting up in bed HEENT: NCAT, PERRL, EOMI Neck: supple, no jvd Cardio: rrr, normal s1s2, no mrg noted Pulm: cta b/l Abd: soft, nontender. Back with wound dressing cdi on L-spine Ext: no edema LABS Laboratory Results - last 24 hr 02/12/19 02/12/19 02/12/19 06:30 06:30 10:10 WBC 9.3 RBC 4.19 Hgb 12.2 Hct 36.4 MCV 87.0 MCH 29.0 MCHC 33.4 RDW 14.1 Plt Count 289 MPV 7.8 Absolute Neuts (auto) 6.4 Neutrophils % 69.6 Lymphocytes % 21.3 Monocytes % 7.3 Eosinophils % 1.2 Basophils % 0.6 Nucleated RBC % 0 Sodium 140 Potassium 4.3 Chloride 108 H Carbon Dioxide 24 Anion Gap 9 BUN 10.6 Creatinine 0.8 Est GFR (CKD-EPI)AfAm 115.74 Est GFR (CKD-EPI)NonAf 99.86 Random Glucose 91 Calcium 9.1 Total Bilirubin 0.7 AST 14 L ALT 31 Alkaline Phosphatase 83 Total Protein 6.2 L Albumin 2.9 L Vancomycin Pre-Dose 11.7 L HOSPITAL COURSE: Date of Admission:02/09/19 Date of Discharge: 02/12/19 Pt is a 54 y/o M with PMH hyperlipidemia, BPH, diverticulitis, chronic low back pain secondary to lumbar herniated discs, s/p lumbar surgery 10 days prior to admission who evidently had continuous drainage from his surgical site. He came to the hospital and was seen by neurosurgery, Dr. Rodrigo Meade. The patient went to the OR for incision & drainage. The procedure went well and was without complications. The patient is stable for discharge with instructions to follow up with his primary care as well as the surgeon and infectious diseases. Minutes to complete discharge: 30 Discharge Summary Reason For Visit: POSTOPERATIVE COMPLICATION Condition: Stable - Instructions Diet, Activity, Other Instructions: You were in the hospital because of the wound in your back. You had surgery to drain fluid from around the wound. You need to follow up with your primary care doctor, as well as the surgeon, Dr. Meade and the infectious diseases doctor, Dr. Sweeney. You have been cleared for home discharge off antibiotics by Dr. Meade and infectious disease doctor. Your wound cultures sent, results of which are currently pending. you can have your doctor follow up in 3-4 days. Continue taking your medications as before. If you have new symptoms or your symptoms get worse, please go to the emergency department. Referrals: She Sweeney MD [Staff Physician] - Isauro Meade MD [Staff Physician] - Disposition: HOME - Home Medications Comprehensive Discharge Medication List: Ambulatory Orders Cholecalciferol (Vitamin D3) [Vitamin D3] 5,000 unit PO DAILY 11/07/17 Finasteride [Proscar] 5 mg PO DAILY 11/07/17 Tamsulosin HCl [Flomax] 0.4 mg PO DAILY 11/07/17 Cyclobenzaprine HCl 10 mg PO TID 02/09/19 Pravastatin Sodium 1 tab PO HS 02/09/19 This patient is new to me today: No Emergency Visit: No Critical Care patient: No - Discharge Referral Referred to [facility] No ATTENDING PHYSICIAN STATEMENT I saw and evaluated the patient. I reviewed the resident's note and discussed the case with the resident. I agree with the resident's findings and plan as documented. SUBJECTIVE: OBJECTIVE: ASSESSMENT AND PLAN:
== END 2019-02-12 13:39 | disposition home or self-care (01) | DRG 58 ==
LOC: JERFT 14:41 → JER 14:41 → JERBED 16:45 → J8W 02-10 00:50
PROVIDERS: ADMIT Internal Medicine; ATTEND Hospitalist
PROC: B01BZZZ Fluoroscopy of Spinal Cord (ICD-10-PCS; 2019-02-11)
PROC: 0W9L3ZX Drainage of Lower Back, Percutaneous Approach, Diagnostic (ICD-10-PCS; principal; 2019-02-11 08:00)
DX: G97.82 Other postprocedural complications and disorders of nervous system (principal); E78.5 Hyperlipidemia, unspecified; N40.0 Benign prostatic hyperplasia without lower urinary tract symptoms; H91.8X9 Other specified hearing loss, unspecified ear; F17.210 Nicotine dependence, cigarettes, uncomplicated; Y83.8 Other surgical procedures as the cause of abnormal reaction of the patient, or of later complication, without mention of misadventure at the time of the procedure; M51.26 Other intervertebral disc displacement, lumbar region
CPT/HCPCS: 36415; 72131-TC; 72158-TC; 76000-TC-FY; 80053; 83735; 84100; 84443; 85025; 85610; 85651; 85730; 86140; 86850; 86900; 86901; 87040; 87070; 87075; 87205; 93005; 93010; 94760; 97116-GP; 97162-GP; 99284-25; G0480; J1644; J7030

== ENCOUNTER 2019-03-30 14:47 | Emergency (ER) | payer BC ==
--- NOTE | 2019-03-30 14:52 | PDOC ---
History of Present Illness - General Chief Complaint: Lightheaded Stated Complaint: DIZZINESS Time Seen by Provider: 03/30/19 14:49 - History of Present Illness Initial Comments: 03/30/19 15:31 54 y/o M with PMH hyperlipidemia, BPH, diverticulitis, chronic low back pain secondary to lumbar herniated discs, s/p lumbar surgery earlier in the year and then a post-op fluid collection that underwent I&D in January -all cultures negative who presents for 2 weeks of headaches. States frontal headaches. No f/ c. No photophobia, no phonophobia. Pt saw Dr. Meade (neurosx) on 03/19 who said his back was healing well. States he saw Dr. Hahn (covering Dr. Kessler) also that week who states he may have had a sinus infection and prescribed doxycycline and told him to see ENT. Pt saw Dr. Wallace (ENT) on 03/22 who states ears, nose, throat all looked ok. Still with headaches daily. Taking motrin at home for pain. Pt states he called Dr. Meade who ordered a CBC today for poss infection. Pt states he also still has pain to his low back since his surgery. No new pain symptoms, paresthesias, weakness. Pt denies blurred vision. No neck pain. No meningeal signs. Pt denies cp, but states dry cough once in a while which worsens his headache. No rhinorrhea, no sore throat. Pt denies n/v/d. No dysuria. No weakness in legs, no loss of control of the bowel or bladder. No new back complaints. Pmhx: hld, bph, diverticulitis, chronic lbp Pshx: laminectomy, then I&D of surgical site in the back all: zosyn Is this a multiple visit Asthma Patient?: No Past History - Past Medical History Allergies/Adverse Reactions: Allergies Allergy/AdvReac Type Severity Reaction Status Date / Time piperacillin sodium Allergy Rash Verified 03/30/19 14:51 [From Zosyn] tazobactam sodium Allergy Rash Verified 03/30/19 14:51 [From Zosyn] Bee stings Allergy Uncoded 03/30/19 14:51 Home Medications: Ambulatory Orders Cholecalciferol (Vitamin D3) [Vitamin D3] 5,000 unit PO DAILY 11/07/17 Finasteride [Proscar] 5 mg PO DAILY 11/07/17 Tamsulosin HCl [Flomax] 0.4 mg PO DAILY 11/07/17 Cyclobenzaprine HCl 10 mg PO TID 02/09/19 Pravastatin Sodium 10 tab PO HS 02/09/19 Doxycycline Hyclate 100 mg PO ASDIR 03/30/19 Tramadol HCl 50 mg PO DAILY PRN 03/30/19 Anemia: No Asthma: No Cancer: No Cardiac Disorders: No CVA: No COPD: No CHF: No DVT: No Dementia: No Diabetes: No Dialysis: No GI Disorders: Yes (COLITIS) Disorders: Yes (ENLARGED PROSTATE) HTN: No Hypercholesterolemia: No Kidney Stones: No Liver Disease: No Psychiatric Problems: No Seizures: No Thyroid Disease: No Lung CA: No - Surgical History GI Surgery: Yes (COLON RESECTION FOR DIVERTICULITS) - Psycho Social/Smoking Cessation Hx Smoking Status: Yes Smoking History: Current every day smoker Have you smoked in the past 12 months: Yes Number of Cigarettes Smoked Daily: 20 Cigars Per Day: 0 'Breaking Loose' booklet given: 02/10/19 Hx Alcohol Use: No Drug/Substance Use Hx: No Substance Use Type: None Hx Substance Use Treatment: No Review of Systems - Review of Systems Able to Perform ROS?: Yes Is the patient limited Armenian proficient: No Constitutional: No: Chills, Fever HEENTM: No: Eye Pain, Blurred Vision, Nose Pain, Nose Congestion, Throat Pain, Throat Swelling Respiratory: Yes: Cough. No: Shortness of Breath, Productive cough Cardiac (ROS): No: Chest Pain, Syncope ABD/GI: No: Diarrhea, Nausea, Vomiting, Abdominal cramping : No: Burning, Dysuria Musculoskeletal: Yes: Back Pain. No: Neck Pain Neurological: Yes: Headache. No: Numbness, Paresthesia, Tingling, Tremors, Weakness, Ataxia, Dizziness All Other Systems: Reviewed and Negative *Physical Exam - Vital Signs 03/30/19 15:36 Selected Entries 03/30/19 14:47 Temperature 98.2 F Pulse Rate 81 Respiratory 20 Rate Blood Pressure 136/73 Blood Pressure 94 Mean O2 Sat by Pulse 100 Oximetry (%) Weight 90.718 kg - Physical Exam General Appearance: Yes: Nourished, Appropriately Dressed. No: Apparent Distress HEENT: positive: EOMI, ASHISH, Normal ENT Inspection, Normal Voice, TMs Normal, Pharynx Normal, Other (upper dentures in place). negative: Rhinorrhea Neck: positive: Other (no midline ttp, no stepoffs or deformities). negative: Supple, Decreased range of motion, Lymphadenopathy (R), Lymphadenopathy (L) Respiratory/Chest: positive: Lungs Clear, Normal Breath Sounds. negative: Respiratory Distress Cardiovascular: positive: Regular Rhythm, Regular Rate, S1, S2. negative: Edema Gastrointestinal/Abdominal: positive: Normal Bowel Sounds, Soft. negative: Guarding, Rebound, Tenderness Lymphatic: negative: Adenopathy Musculoskeletal: positive: Normal Inspection, Other (mild ttp over low back incision site, no erythema, no induration, wound is well healed and approximated , no drainage, no fluctuance). negative: CVA Tenderness Extremity: positive: Normal Capillary Refill, Normal Inspection, Normal Range of Motion. 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 NML intact, Fully Oriented, Alert, Normal Mood/ Affect, Normal Response, Motor Strength 5/5, Other (normal heel - lowery b/l) ED Treatment Course - LABORATORY CBC & Chemistry Diagram: 03/30/19 15:15 Medical Decision Making - Medical Decision Making 03/30/19 15:38 a/p: 54yo male with frontal livingston x 2 weeks -no vision changes -no meningeal signs -currently being treated with doxycycline for URI symptoms that started 2 weeks ago with the livingston -no fevers -had a cbc outpt this AM without acute abnl -will send other labs, head ct given recent back sx, reglan, tylenol, benadryl, ivf hydration -will monitor and reassess -pt ambulated with a steady gait -pt is nontoxic in appearance -poss migraine headache 03/30/19 15:49 cbc from earlier today wbc 10 hgb 12.5 plt 255 no neutrophil shift 03/30/19 17:04 discussed labs and imaging no acute findings on head ct re-eval: pt states livingston improved, not totally gone will add toradol will allow ivf hydration to complete and re-eval again 03/30/19 17:38 pt states livingston resolved feeling much better asking to go home discussed all reasons to return to the ED and need for follow up with his PMD and neurology will give neurology referral pt stable for dc to home Discharge - Discharge Information Problems reviewed: Yes Clinical Impression/Diagnosis: Headache Condition: Stable Disposition: HOME - Admission No - Follow up/Referral Referrals: Param Kessler MD [Primary Care Provider] - Ranjeet Bravo MD [Staff Physician] - Lonny Meneses MD [Staff Physician] - Smith Kinney MD [Staff Physician] - - Patient Discharge Instructions Patient Printed Discharge Instructions: DI for Headache Additional Instructions: Please take tylenol or motrin as needed for pain at home. Please follow up with your PMD this week. Please also make an appointment to see a neurologist as discussed with all your doctors prior to this visit. Please drink plenty of fluids. Please return to the ED with any further concerns or complaints. - Post Discharge Activity
[2019-03-30 14:59] VITALS: BMI 31.3
[2019-03-30] MEDS ORDERED: ACETAMINOPHEN 1000 MG/100 ML VIAL (NON FORMULARY) IVPB ONE (15:10)
[2019-03-30] MEDS ORDERED: METOCLOPRAMIDE HCL INJECTION 10 MG/2 ML VIAL IVPUSH ONE (15:10)
[2019-03-30] MEDS ORDERED: SODIUM CHLORIDE 0.9% 1000 ML INFUS.BAG IV ONE (15:10)
[2019-03-30] MEDS ORDERED: METOCLOPRAMIDE HCL INJECTION 10 MG/2 ML VIAL ONE (15:21)
[2019-03-30] MEDS ORDERED: ACETAMINOPHEN INJECTION 100 ML IVPB ONE (15:21)
[2019-03-30 15:41] LABS: ALBUMIN 3.9 g/dl (3.4-5.0); BILIRUBIN,TOTAL 0.8 mg/dl (0.2-1); CALCIUM 9.1 mg/dl (8.5-10); CREATININE 0.7 mg/dl (0.55-1.3); TOT PROT 6.8 g/dl (6.4-8.2)
[2019-03-30 15:47] LABS: INR 1.2 (0.82-1.09); PROTHROMBIN TIME (PATIENT) 13.4 SEC (10.2-13.0)
[2019-03-30 16:01] LABS: POTASSIUM 3.8 mmol/L (3.5-5.1)
[2019-03-30] MEDS ORDERED: KETOROLAC TROMETHAMINE 30 MG/1 ML VIAL IVPUSH ONE (17:03)
[2019-03-30] MEDS ORDERED: KETOROLAC TROMETHAMINE 30 MG/1 ML VIAL ONE (17:04)
[2019-03-30 18:05] VITALS: BP 124/58; PULSE 77; TEMP 98.5
== END 2019-03-30 18:05 | disposition home or self-care (01) ==
LOC: FER 14:47
PROC: 3E0337Z Introduction of Electrolytic and Water Balance Substance into Peripheral Vein, Percutaneous Approach (ICD-10-PCS; principal; 2019-03-30)
PROC: 3E0333Z Introduction of Anti-inflammatory into Peripheral Vein, Percutaneous Approach (ICD-10-PCS; 2019-03-30)
PROC: 3E033GC Introduction of Other Therapeutic Substance into Peripheral Vein, Percutaneous Approach (ICD-10-PCS; 2019-03-30)
PROC: 3E033NZ Introduction of Analgesics, Hypnotics, Sedatives into Peripheral Vein, Percutaneous Approach (ICD-10-PCS; 2019-03-30)
DX: R51 Headache (principal); G89.29 Other chronic pain; M54.5 Low back pain; F17.210 Nicotine dependence, cigarettes, uncomplicated; N40.0 Benign prostatic hyperplasia without lower urinary tract symptoms; Z88.1 Allergy status to other antibiotic agents; Z91.030 Bee allergy status; K52.9 Noninfective gastroenteritis and colitis, unspecified; K57.92 Diverticulitis of intestine, part unspecified, without perforation or abscess without bleeding
CPT/HCPCS: 36415; 70450-TC; 80053; 85610; 85730; 99283-25; J0131; J7030

== ENCOUNTER 2019-06-05 06:18 | Day surgery (SDC) | payer OTHER ==
[2019-06-04 18:55] VITALS: BMI 31.3
[2019-06-05 06:47] VITALS: TEMP 97.6
[2019-06-05] MEDS ORDERED: MIDAZOLAM HCL 2 MG/2 ML SINGLE DOSE VIAL ONE ×2 (07:29→08:07)
[2019-06-05] MEDS ORDERED: PROPOFOL 20 ML ONE (07:29)
[2019-06-05] MEDS ORDERED: SUCCINYLCHOLINE CHLORIDE 200 MG/10 ML SYRINGE ONE (07:29)
[2019-06-05] MEDS ORDERED: MINERAL OIL/PETROLATUM,WHITE 3.5 GM TUBE ONE (08:06)
[2019-06-05] MEDS ORDERED: LIDOCAINE HCL 1%, 10 MG/ML (20ML VIAL) INF ONE (08:15)
[2019-06-05 09:58] VITALS: BP 136/89; PULSE 64
--- NOTE | 2019-06-05 10:28 | OP ---
DATE OF OPERATION: 06/05/2019 PREOPERATIVE DIAGNOSES: 1. Right L4-5 paraspinal fluid correction. 2. History of lumbar laminectomy, right L3-4 and L4-5 and left L2-3 and L3-4. POSTOPERATIVE DIAGNOSES: 1. Right L4-5 paraspinal fluid correction. 2. History of lumbar laminectomy, right L3-4 and L4-5 and left L2-3 and L3-4. ATTENDING SURGEON: Isauro Sims MD PROCEDURES: 1. Right L4-5 paraspinal fluid aspiration. 2. Intraoperative fluoroscopy. ANESTHESIA: Local with IV sedation. ANESTHESIOLOGIST: , PRODUCTION CELL LEADER INDICATIONS: Patient is a 54-year-old male who underwent right L3-4 and L4-5 as well as left L2-3 and L3-4 laminectomy several months ago. He initially developed postoperative drainage, which stopped spontaneously. Prior fluid aspiration has been negative as well as negative swab cultures. He complains of persistent dizziness and was found to have a paraspinal fluid collection on the postoperative MRI examination. There is some peripheral enhancement, and he is here for aspiration of fluid for cultures and studies. Risks of procedure include, but are not limited to, bleeding, infection, spinal headache, and neurological injury. The patient understands the indications for the procedure, procedure in detail, risks and benefits, and alternatives for treatment of his condition, and wishes to proceed. No guarantees given for a favorable outcome. PROCEDURE IN DETAIL: After the patient was taken to the operating room, he was placed in a prone position with a pillow under his hips. Lumbar region was cleaned with alcohol and then prepped with Hibiclens and Betadine. Then a skin wheal was raised using 5 mL 1% Xylocaine. An 18-gauge spinal needle was inserted under AP and lateral fluoroscopic guidance from a right-sided approach. Upon reaching the spinous process tip level, fluid collection was encountered, which was clear in nature. [id number] technique was utilized. Needle was then advanced to the paraspinal tissue level above the lamina. Approximately 20 mL total fluid came out. It was under slight pressure. The fluid was sent for a glucose, protein, cell count, Gram stain culture and cytology. The patient tolerated the procedure well and was turned back into supine position. Moving bilateral upper and lower extremities well. A sterile occlusive dressing was applied. ISAURO SIMS M.D. [id number]
[2019-06-05 10:46] LABS: CSF APPEARANCE CLEAR; CSF WBC 27
[2019-06-05 10:47] LABS: CSF COLOR COLORLESS
[2019-06-05] MEDS ORDERED: ONDANSETRON 4 MG/2 ML VIAL IVPUSH PRN (12:11)
[2019-06-05] MEDS ORDERED: ACETAMINOPHEN 325 MG TABLET (FP) PO PRN (12:11)
[2019-06-05] MEDS ORDERED: oxyCODONE HCL 5 MG TABLET PO PRN (12:11)
[2019-06-05] MEDS ORDERED: LACTATED RINGERS SOLUTION 1,000 ML IV SCH (12:15)
[2019-06-05 14:41] LABS: BF GLUCOSE (CSF ONLY) 40 mg/dL (40-70)
--- NOTE | 2019-06-05 17:08 | PATH ---
Cytology Non-Gynecological Report Patient Name: MIGUELITO MCCRAY [facility]. Rec. #: [id number] /Age/Gender: 1965 (Age: 54) / M Account: [id number] Location: [facility] SURGICAL Taken: 06/05/2019 Received: 06/05/2019 Reported: 06/05/2019 Physicians: Isauro Meade M.D. Specimen(s) Received CEREBROSPINAL FLUID Clinical History History of lumbar laminectomy Final Diagnosis CEREBROSPINAL FLUID FOR CYTOLOGY: SATISFACTORY FOR EVALUATION. NEGATIVE FOR MALIGNANT CELLS. LYMPHOCYTES AND RARE MACROPHAGES PRESENT. RED BLOOD CELLS AND PERIPHERAL BLOOD ELEMENTS NOTED. Electronically Signed Ame Mitchell M.D. Gross Description Approximately 0.5 cc of clear fluid received fresh. Two cytofunnels prepared and Pap stained
== END 2019-06-05 10:07 | disposition home or self-care (01) ==
LOC: JASU-SURG 06:18
PROVIDERS: ATTEND Neurological Surgery
PROC: 009T3ZX Drainage of Spinal Meninges, Percutaneous Approach, Diagnostic (ICD-10-PCS; principal; 2019-06-05 08:06)
DX: M96.1 Postlaminectomy syndrome, not elsewhere classified (principal); Y83.8 Other surgical procedures as the cause of abnormal reaction of the patient, or of later complication, without mention of misadventure at the time of the procedure
CPT/HCPCS: 36415; 76000-TC-FY; 82945; 84157; 87070; 87205; 88108

== ENCOUNTER → 2021-02-04 | Day surgery (SDC) | payer BC, OTHER | END | disposition home or self-care (01) | LOC: JRADIR 09:49 | PROVIDERS: ATTEND Internal Medicine Geriatric Medicine | PROC: 0G9K3ZX Drainage of Thyroid Gland, Percutaneous Approach, Diagnostic (ICD-10-PCS; principal; 2021-02-04) | DX: E04.1 Nontoxic single thyroid nodule (principal) | CPT/HCPCS: 10005; 76942; 88173; 88305-TC ==